=== PATIENT | female | born 1955 | race Caucasian/White ===

== ENCOUNTER 2017-02-14 14:17 | Outpatient (CLI) | payer OTHER | END 2017-02-14 14:18 | disposition home or self-care (01) | DX: Z12.31 Encounter for screening mammogram for malignant neoplasm of breast (principal); Z85.3 Personal history of malignant neoplasm of breast ==

== ENCOUNTER 2017-02-14 14:19 | Outpatient (CLI) | payer OTHER | END 2017-02-14 14:20 | disposition home or self-care (01) | DX: N83.202 Unspecified ovarian cyst, left side (principal); R35.0 Frequency of micturition ==

== ENCOUNTER 2017-04-13 15:50 | Outpatient (CLI) | payer OTHER | END 2017-04-13 15:51 | disposition home or self-care (01) | LOC: LAB 15:50 | PROVIDERS: ATTEND Obstetrics & Gynecology | DX: D27.0 Benign neoplasm of right ovary (principal) | CPT/HCPCS: 36415; 86304 ==

== ENCOUNTER 2017-05-22 15:19 | Outpatient (CLI) | payer OTHER ==
--- NOTE | 2017-05-23 09:36 | Ultrasound Report ---
PELVIC ULTRASOUND: 05/22/2017 CLINICAL INDICATION: Followup left ovarian cysts. COMPARISON: 02/14/2017 TECHNIQUE: Transabdominal pelvic ultrasound performed for global evaluation. Transvaginal pelvic ul trasound performed for detailed evaluation. Real-time scanning performed and static images obtained. FINDINGS: The uterus is anteverted, measuring 5.6 x 2.9 x 2.1 cm. The endometrial echo complex estela ures 4 mm. Trace fluid is present in the endometrium. No focal myometrial lesion is appreciated. T he right ovary measures 2.4 x 1.9 x 1.8 cm, and appears unremarkable. The left ovary measures 4.0 x 2.5 x 2.5 cm, and again contains three simple cysts, now measuring 1.7, 1.7, and 1.[address] (previously 1.5, 1.2, and 1.1 cm). No free fluid is present. IMPRESSION: INTERVAL INCREASE IN SIZE OF THE THREE LEFT OVARIAN CYSTS. NORMAL RIGHT OVARY. JOB #: [id number] EXT JOB #:[id number]
== END 2017-05-22 15:20 | disposition home or self-care (01) ==
LOC: DI 15:19
PROVIDERS: ATTEND Obstetrics & Gynecology
DX: N83.292 Other ovarian cyst, left side (principal)
CPT/HCPCS: 76830; 76856

== ENCOUNTER 2017-05-22 16:55 | Observation (INO) | payer OTHER ==
[2017-05-22] MEDS ORDERED: SODIUM CHLORIDE 0.9% 1,000 ML IV ONE (17:04)
[2017-05-22] MEDS ORDERED: FAMOTIDINE 20 MG/50 ML 50 ML IV ONE (17:11)
[2017-05-22] MEDS ORDERED: DEXAMETHASONE 10 MG/ML VIAL PO STA (17:11)
[2017-05-22] MEDS ORDERED: diphenhydrAMINE INJ 50 MG/ML VIAL IVP STA (17:11)
[2017-05-22] MEDS ORDERED: EPINEPHrine 1 MG/1 ML 30 ML MDV ONE (17:15)
[2017-05-22] MEDS ORDERED: EPINEPHrine 1 MG/ML AMP IM STA (17:17)
[2017-05-22] MEDS ORDERED: EPINEPHrine 1 MG/ML AMP ONE (17:20)
[2017-05-22] MEDS ORDERED: diphenhydrAMINE INJ 50 MG/ML VIAL ONE (17:23)
[2017-05-22] MEDS ORDERED: DEXAMETHASONE 10 MG/ML VIAL ONE (17:23)
[2017-05-22] MEDS ORDERED: FAMOTIDINE 20 MG/50 ML IV ONE (17:23)
[2017-05-22 17:37] LABS: BASOPHILS % (AUTO) 0.6 %; EOSINOPHILS # (AUTO) 0.1 10^3/uL (0.0-0.7); EOSINOPHILS % (AUTO) 1.3 %; HCT - HEMATOCRIT 38.5 % (37.0-47.0); HGB - HEMOGLOBIN 12.9 g/dL (12.0-16.0); LYMPHOCYTES # (AUTO) 2.4 10^3/uL (1.5-3.5); LYMPHOCYTES % (AUTO) 47.2 %; MEAN CORPUSCULAR HEMOGLOBIN 29.5 pg (27.0-31.0); MEAN CORPUSCULAR HGB CONC 33.4 g/dL (32.0-36.0); MEAN CORPUSCULAR VOLUME 88.2 fL (81.0-99.0); MONOCYTES # (AUTO) 0.3 10^3/uL (0.0-1.0); MONOCYTES % (AUTO) 6.2 %; NEUTROPHILS # (AUTO) 2.3 10^3/uL (1.5-6.6); NEUTROPHILS % (AUTO) 44.7 %; NUCLEATED RED BLOOD CELLS AUTO 0.1 /100WBC; RED BLOOD COUNT 4.37 10^6/uL (4.20-5.40); UNCORRECTED WHITE BLOOD COUNT 5.1 x10^3/uL; WHITE BLOOD COUNT 5.1 x10^3/uL (4.8-10.8)
[2017-05-22 17:49] LABS: ALBUMIN/GLOBULIN RATIO 1.2 (1.0-2.2); BILIRUBIN,TOTAL 0.5 mg/dL (0.2-1.0); CALCIUM 8.5 mg/dL (8.5-10.3); CREATININE 0.8 mg/dL (0.4-1.0); POTASSIUM 3.5 mmol/L (3.5-5.0)
--- NOTE | 2017-05-22 17:54 | ED Physician Documentation ---
History of Present Illness - Stated complaint Stated Complaint: ALLERGIC REACTION - Chief complaint Chief Complaint: Allergic Rx - Additonal information Additional information: hx from pt hx of allergic rxn to sono gel or probe cover after sono today developed hypotension itching and upper chest / throat tightness "like a nutcracker" was well prior to sono (which as done to eval her ovaries) Review of Systems Constitutional: denies: Fever, Chills Throat: reports: Sore throat Cardiac: reports: Chest pain / pressure Respiratory: reports: Dyspnea GI: denies: Abdominal Pain, Nausea, Vomiting Skin: denies: Rash (but itchy) Neurologic: reports: Generalized weakness (low BP) PD PAST MEDICAL HISTORY - Past Medical History Cardiovascular: Atrial fibrillation, Other - Present Medications Home Medications: Ambulatory Orders Medication Instructions Recorded Confirmed Calcium Carbonate [Calcium] 600 mg PO DAILY 04/22/14 02/25/16 Cholecalciferol (Vitamin D3) 2,000 unit PO DAILY 04/22/14 02/25/16 [Vitamin D] Ibuprofen 0 mg PO Q6H PRN 04/22/14 02/26/16 Magnesium Oxide [Magnesium] 500 mg PO DAILY 04/22/14 02/25/16 Aspirin 325 mg PO DAILY 02/25/16 02/25/16 diltiaZEM CD [Cardizem Cd] 120 mg PO DAILY 02/25/16 02/26/16 - Allergies Allergies/Adverse Reactions: Allergies Allergy/AdvReac Type Severity Reaction Status Date / Time No Known Drug Allergies Allergy Unverified 04/22/14 13:25 - Social History Does the pt smoke?: No Smoking Status: Never smoker PD ED PE NORMAL - Vitals Vital signs reviewed: Yes - General General: Alert and oriented X 3, Other (awake alert talkign despite very low BP) - HEENT HEENT: Other (no oral edema visible - pt states throat feels tight) - Cardiac Cardiac: RRR - Respiratory Respiratory: No respiratory distress, Clear bilaterally - Abdomen Abdomen: Soft, Non tender - Derm Derm: Other (pale but no hives) Results - Vitals Vitals: Vital Signs - 24 hr 05/22/17 17:02 Temperature 37 C Heart Rate 138 H Respiratory 20 Rate Blood Pressure 78/55 L O2 Saturation 100 Oxygen O2 Source Room air - EKG (time done) 1706 Rate: Rate (enter#) Rhythm: NSR Ischemia: Other (mild ST elev of uncertain sig V2 V3, concave up could be repol but in setting of acute chest pain) Compare to prior EKG: Old EKG unavailable 1825 Rate: Rate (enter#) (62) Rhythm: NSR Ischemia: Other (again slight ST elev V2 V3 similar to EKG #1) - Labs Labs: Laboratory Tests 05/22/17 05/22/17 05/22/17 17:31 17:31 17:31 WBC 5.1 RBC 4.37 Hgb 12.9 Hct 38.5 MCV 88.2 MCH 29.5 MCHC 33.4 RDW 13.0 Plt Count 243 MPV 7.0 L Neut # 2.3 Lymph # 2.4 [place] # 0.3 Eos # 0.1 Baso # 0.0 Absolute Nucleated RBC 0.01 Band Neuts % (Manual) Not Reportable Nucleated RBCs 0.1 Differential Comment MANUAL=AUTO DIFF Platelet Estimate NORMAL (130-450,000) Platelet Morphology NORMAL APPEARANCE RBC Morph Micro Appear NORMAL APPEARANCE Sodium 135 Potassium 3.5 Chloride 105 Carbon Dioxide 21 Anion Gap 9.0 BUN 23 H Creatinine 0.8 Estimated GFR (MDRD) 73 L Glucose 134 H Calcium 8.5 Total Bilirubin 0.5 AST 26 ALT 22 Alkaline Phosphatase 65 Troponin I < 0.04 Total Protein 6.0 L Albumin 3.3 Globulin 2.7 Albumin/Globulin Ratio 1.2 Lipase 30 PD MEDICAL DECISION MAKING - ED course ED course: sx c/w anaphylactic rxn - itching throat tightness hypotension gave epi decadron benadryl and pepcid due to CP got EKG which was abn - no hx CAD - -will req obs for monitoring allergy sx and also serial CE as she exhibited CP and EKG changes under stress d/w hospitalist Dr Rincon and she agrees to admit and advises obs Departure - Departure Disposition: ED Place in Observation Clinical Impression: Anaphylaxis Qualifiers: Encounter type: initial encounter Qualified Code(s): T78.2XXA - Anaphylactic shock, unspecified, initial encounter Chest pain Qualifiers: Chest pain type: unspecified Qualified Code(s): R07.9 - Chest pain, unspecified Condition: Fair
[2017-05-22 18:13] LABS: NP AUTO DIFFERENTIAL? NO; NP MAN DIFFERENTIAL? YES; PLATELET ESTIMATE, MANUAL NORMAL (130-450,000) (NORMAL); PLATELET MORPHOLOGY NORMAL APPEARANCE (NORMAL)
[2017-05-22] MEDS ORDERED: ACETAMINOPHEN 325 MG TABLET PO PRN (19:29)
[2017-05-22] MEDS ORDERED: SODIUM CHLORIDE FLUSH 0.9% 10 ML SYRINGE IVP PRN (19:29)
[2017-05-22] MEDS ORDERED: ONDANSETRON ODT 4 MG TABLET TL PRN (19:29)
--- NOTE | 2017-05-22 19:52 | HISTORY & PHYSICAL EXAMINATION ---
Chief Complaint - Chief Complaint Chief Complaint: anaphylaxis after exposure to ultrasound gel History of Present Illness - Admitted From Admitted From:: emergency room - History Obtained From Records Reviewed: er History obtained from: pt Exam Limitations: none - History of Present Illness HPI Comment/Other: this patient had an uultrasound and experienced ... anaphylaxis after exposure to the ultrasound gel or vaginal probe cover, associated with hypotension, chest pain, throat closing. She was evaluated in The emergency room. she reports she had a vaginal ultrasound about 2 months ago, after which she had itching and swelling of her hands and feet and face. She took a Zyrtec, and symptoms resolved. today, she had another ultraso ultrasound. shortly after the exam, she noted onset of swelling of her face, hands and feet, as well as itching. She got up to get a Zyrtec, and apparently fainted. When she opened her ey eyes, the tach was standing over her. She said she felt very strange and diaphoretic, and felt like her throat was closing, and she was having significant chest pressure. This made her feel quite short of breath. She was taken to the e emergency room , and was given epinephrine, dexamethasone, Benadryl, Pepcid. She was initially hypotensive, but symptoms resolved fairly quickly after treatment. She is now admitted for further observation, to be sure symptoms do not return. She currently feels ba and back to normal. Otherwise, she says she was feeling fine prior to the exam. She has not had recent fever or chills, headaches or dizziness,new eye or ear symptoms, sore throat or cough, nausea or vomiting, diarrhea or constipatio, or dysuria. past medical history: Left breast cancer, 2001. osteoarthritis Osteopenia atrial fibrillation in the past GERD Left inguinal hernia re 2002 Medications: she believes she takes metoprolol, dose uncertain. Aspirin 325 mg daily Allergies: No known drug allergies, prior to today. Family history: Aunt had ovarian cancer. Father had some kind of allergies. Her brother has juvenile diabetes. Her sister has asthma. Social history: rare alcohol use, no tobacco use.no drug use. she lives with her History - Past Medical History Cardiovascular: reports: Atrial fibrillation, Other Meds/Allgy - Home Medications Home Medications: Ambulatory Orders Medication Instructions Recorded Confirmed Calcium Carbonate [Calcium] 600 mg PO DAILY 04/22/14 02/25/16 Cholecalciferol (Vitamin D3) 2,000 unit PO DAILY 04/22/14 02/25/16 [Vitamin D] Ibuprofen 0 mg PO Q6H PRN 04/22/14 02/26/16 Magnesium Oxide [Magnesium] 500 mg PO DAILY 04/22/14 02/25/16 Aspirin 325 mg PO DAILY 02/25/16 02/25/16 diltiaZEM CD [Cardizem Cd] 120 mg PO DAILY 02/25/16 02/26/16 - Allergies Allergies/Adverse Reactions: Allergies Allergy/AdvReac Type Severity Reaction Status Date / Time No Known Drug Allergies Allergy Unverified 04/22/14 13:25 Exam - Vital Signs Reviewed Vital Signs: Yes Vital Signs: Vital Signs x48h Temp Pulse Resp BP Pulse Ox 05/22/17 19:43 16 05/22/17 19:42 76 19 122/70 98 05/22/17 19:17 66 121/68 98 05/22/17 18:30 64 121/68 97 05/22/17 17:50 62 18 120/97 H 98 05/22/17 17:02 37 C 138 H 20 78/55 L 100 on exam, she is in no acute dis Distress. Head: Normocephalic atraumatic. Eyes: Pupils round and react. Anicteric. Pharynx: Appears clear. Teeth are in good rep Repair. Neck: Is supple, without lymphadenopathy, JVD, thyromegaly, bruits. Cardiac exam: Shows regular rate and rhythm, with normal S1 and S2. No murmurs, rubs, gallops are noted. lungs: Clear to auscultation, without rales, rhonchi, wheezes. Abdomen: Is soft and nontender without obvious masses. Extremities: Show no cyanosis, clubbing, edema. Skin exam: Shows no obvious swelling or rashes. Neurologic exam: Is grossly nonfocal. Conclusion/Plan - Lab Results Fish Bones: 05/22/17 17:31 05/22/17 17:31 Other Lab Results: differential on her CBC appears normal. LFTs within normal limits, although total protein is low at 6 EKG:Shows normal sinus rhythm at 68 and, J-point elevation note in leads V2 through V3.enlarged P waves suggest right atrial enlargement. Issues/Core Measures - Anticipated LOS Anticipated Stay Length: Less than 2 midnights - Issues Hospital Issues and Management Plan: #1.acute anaphylactic react reaction, apparently to ultrasound gel, or vaginal probe cover. -much improved after treatment with Benadryl, dexamethasone, epinephrine, famotidine. -monitor for at least 8 hours on telemetry, for signs of delayed reaction. The patient expressed a desire to return home, but after discussion, she and her agreed she should stay. -We discussed that she should probabl have followup with an circulation man, to pinpoint the cause of her allergies.. She should also contact the ultrasound departme to get the brand name of the ultrasound gel, and probe covers. #2. CODE STATUS:full code. #3. DVT prophylaxis: The patient should be , and low risk. Start subcutaneous hep if she will be her more Then 24 hours. #4. Cardiac. She apparently has a history of paroxysmal atrial fibrillation. She is in sinus today. I then tried to verify home dose of metoprolol. Continue aspirin. #5. History breast cancer. Resolved. this visit took approximately 50 m to review patient's case with the ER [facility], review records and test results the patient weighed with the patien by Dr. Quinones with her, interview and examine he, and write orders.
[2017-05-22] MEDS ORDERED: POTASSIUM CHLORIDE INJ 20 MEQ in DEXTROSE 5%-0.45% NACL 1,000 ML IV SCH (20:00)
[2017-05-22] MEDS ORDERED: D5.45NS W/20 MEQ KCL 1,000 ML IV SCH (23:00)
[2017-05-22] MEDS: SODIUM CHLORIDE FLUSH 0.9% 10 ML SYRINGE IVP SCH (23:51)
[2017-05-23] MEDS ORDERED: IBUPROFEN 400 MG TABLET PO SCH (01:00)
[2017-05-23] MEDS: SODIUM CHLORIDE FLUSH 0.9% 10 ML SYRINGE IVP SCH (05:27)
[2017-05-23 08:19] VITALS: BP 130/69
--- NOTE | 2017-05-23 08:31 | Discharge Plan ---
Discharge Plan Disposition: 01 Home, Self Care Condition: Good Diet: Cardiac Activity Restrictions: No Restrictions Shower Restrictions: No Driving Restrictions: No Weight Bearing: Full Weight Instruction Topics: ED Anaphylaxis General Additional Instructions or Follow Up instructions: Please follow up with your primary care provider regarding your symptoms this week. You will need to continue on home medications as prescribed. You will need to see an supervisor boat outfitting for reason why you had a reaction to the ultrasound transvaginal wand and sheath used for the procedure. You may have a latex allergy. You can continue on your diet as usual. Be sure to drink several glasses of water throughout the day. Get plenty of sleep at night. Exercise as usual, walking is best. Return to the ER is symptoms worsen or you have chest pain or shortness of breath. No Smoking: If you smoke, Please STOP! Call for help.
--- NOTE | 2017-05-23 08:36 | DISCHARGE SUMMARY ---
"Discharge Summary Admit Date: 05/22/17 Discharge Date: 05/23/17 Discharging Provider: Talya Bucio APRN Code Status: Attempt Resuscitation Condition at Discharge: Good Discharge Disposition: 01 Home, Self Care - DIAGNOSES Admission Diagnoses: 1. Acute anaphylaxis with possible latex allergy s/p ultrasound transvaginal 2. Chronic Atrial Fibrillation, paroxysmal 3. History of breast cancer Discharge Diagnoses with Status of Each Condition: 1. Acute anaphylaxis with possible latex allergy s/p ultrasound transvaginal 2. Chronic Atrial Fibrillation, paroxysmal 3. History of breast cancer - HPI History of Present Illness: this patient had an uultrasound and experienced ... anaphylaxis after exposure to the ultrasound gel or vaginal probe cover, associated with hypotension, chest pain, throat closing. She was evaluated in The emergency room. she reports she had a vaginal ultrasound about 2 months ago, after which she had itching and swelling of her hands and feet and face. She took a Zyrtec, and symptoms resolved. today, she had another ultraso ultrasound. shortly after the exam, she noted onset of swelling of her face, hands and feet, as well as itching. She got up to get a Zyrtec, and apparently fainted. When she opened her ey eyes, the tach was standing over her. She said she felt very strange and diaphoretic, and felt like her throat was closing, and she was having significant chest pressure. This made her feel quite short of breath. She was taken to the e emergency room , and was given epinephrine, dexamethasone, Benadryl, Pepcid. She was initially hypotensive, but symptoms resolved fairly quickly after treatment. She is now admitted for further observation, to be sure symptoms do not return. She currently feels ba and back to normal. Otherwise, she says she was feeling fine prior to the exam. She has not had recent fever or chills, headaches or dizziness,new eye or ear symptoms, sore throat or cough, nausea or vomiting, diarrhea or constipatio, or dysuria. - CONSULTS | PROCEDURES Consultations: none - HOSPITAL COURSE Hospital Course: Patient was admitted with anaphylaxis after exposure to the ultrasound gel or vaginal probe cover during a transvaginal US, associated with hypotension, chest pain, throat closing. She was evaluated in The emergency room. She reports she had a vaginal ultrasound about 2 months ago, after which she had itching and swelling of her hands and feet and face. She took a Zyrtec, and symptoms resolved. today, she had another Patient noted onset of swelling of her face, hands and feet, as well as itching. Patient was admitted into observation for closer monitoring. While in the ER she was given epinephrine, dexamethasone, Benadryl, Pepcid. She was initially hypotensive, but symptoms resolved fairly quickly after treatment. Treatment included IVF NS and continuation of her medication for AFib and blood pressure. She had tylenol ordered for pain or fever. She remained on a cardiac diet. She had no additional symptoms of allergic reaction after the initial event. Her vitalsigns remained stable. She continued on benadryl, pepcid and dexamethasone PRN for additional symptoms. On day of discharge, VS WNL and patient as wanting to be discharged home. She will go home with private vehicle with family - ALLERGIES Allergies/Adverse Reactions: Allergies Allergy/AdvReac Type Severity Reaction Status Date / Time No Known Drug Allergies Allergy Unverified 04/22/14 13:25 - MEDICATIONS Home Medications: Ambulatory Orders Medication Instructions Recorded Confirmed Calcium Carbonate [Calcium] 600 mg PO DAILY 04/22/14 02/25/16 Cholecalciferol (Vitamin D3) 2,000 unit PO DAILY 04/22/14 02/25/16 [Vitamin D3] Ibuprofen 0 mg PO Q6H PRN 04/22/14 02/26/16 Magnesium Oxide [Magnesium] 500 mg PO DAILY 04/22/14 02/25/16 Aspirin 325 mg PO DAILY 02/25/16 02/25/16 diltiaZEM CD [Cardizem Cd] 120 mg PO DAILY 02/25/16 02/26/16 - PHYSICAL EXAM AT DISCHARGE General Appearance: positive: No acute distress, Alert Eyes Bilateral: positive: Normal inspection, PERRL ENT: positive: ENT inspection nml, Pharynx nml Neck: positive: Nml inspection, Thyroid nml, No JVD, Trachea midline Respiratory: positive: Chest non-tender, No respiratory distress, Breath sounds nml Cardiovascular: positive: Regular rate & rhythm, No murmur, No gallop Peripheral Pulses: positive: 2+ Abdomen: positive: Non-tender, No organomegaly, Nml bowel sounds, No distention Back: positive: Nml inspection Skin: positive: Color nml, No rash, Warm, Dry Extremities: positive: Non-tender, Full ROM Neurologic/Psychiatric: positive: Oriented x3, CN's nml (2-12), Mood/affect nml - LABS Result Diagrams: 05/22/17 17:31 05/22/17 17:31 Other Lab Results: Abnormal Lab Results 05/22/17 05/22/17 17:31 17:31 MPV 7.0 fL L fL (7.9-10.8) BUN 23 mg/dL H mg/dL (6-20) Estimated GFR (MDRD) 73 L (>89) Glucose 134 mg/dL H mg/dL (70-100) Total Protein 6.0 g/dL L g/dL (6.7-8.2) - FOLLOW UP Follow Up: Followup with your primary care provider within 1 week of discharge. you will need to see an absorption and adsorption engineer within the first week after discharge. Time spent on discharge planning and education was 30 minutes."
[2017-05-23 08:54] LABS: BASOPHILS % (AUTO) 0.5 %; EOSINOPHILS % (AUTO) 0.1 %; HGB - HEMOGLOBIN 14.1 g/dL (12.0-16.0); LYMPHOCYTES # (AUTO) 0.7 10^3/uL (1.5-3.5); MEAN CORPUSCULAR HEMOGLOBIN 29.5 pg (27.0-31.0); MEAN CORPUSCULAR HGB CONC 33.5 g/dL (32.0-36.0); MONOCYTES # (AUTO) 0.2 10^3/uL (0.0-1.0); MONOCYTES % (AUTO) 3.4 %; NEUTROPHILS # (AUTO) 4.8 10^3/uL (1.5-6.6); RED BLOOD COUNT 4.78 10^6/uL (4.20-5.40); RED CELL DISTRIBUTION WIDTH 13.3 % (12.0-15.0); UNCORRECTED WHITE BLOOD COUNT 5.7 x10^3/uL; WHITE BLOOD COUNT 5.7 x10^3/uL (4.8-10.8)
[2017-05-23] MEDS ORDERED: POLYETHYLENE GLYCOL 3350 17 GM PACKET PO SCH (09:00)
[2017-05-23 09:05] LABS: ALBUMIN/GLOBULIN RATIO 1.1 (1.0-2.2); BILIRUBIN,TOTAL 0.5 mg/dL (0.2-1.0); CALCIUM 9.3 mg/dL (8.5-10.3); CREATININE 0.7 mg/dL (0.4-1.0); POTASSIUM 4.3 mmol/L (3.5-5.0); TOTAL PROTEIN 7.2 g/dL (6.7-8.2)
== END 2017-05-23 10:35 | disposition home or self-care (01) ==
LOC: ED 16:55 → OBS 19:29
PROVIDERS: ADMIT Internal Medicine; ATTEND Nurse Practitioner
DX: T78.2XXA Anaphylactic shock, unspecified, initial encounter (principal); I48.0 Paroxysmal atrial fibrillation; K21.9 Gastro-esophageal reflux disease without esophagitis; Z85.3 Personal history of malignant neoplasm of breast; Z79.82 Long term (current) use of aspirin; N83.292 Other ovarian cyst, left side
CPT/HCPCS: 36415; 76830; 76856; 80053; 83690; 84484; 85025; 93005; 96365; 96366; 96372; 96375; 99217; 99218; 99283; 99284; A9270

== ENCOUNTER 2017-11-30 12:51 | Outpatient (CLI) | payer OTHER ==
[2017-11-30 13:14] LABS: BASOPHILS # (AUTO) 0.1 10^3/uL (0.0-0.1); BASOPHILS % (AUTO) 1.1 %; EOSINOPHILS # (AUTO) 0.2 10^3/uL (0.0-0.7); EOSINOPHILS % (AUTO) 3.4 %; HGB - HEMOGLOBIN 13.4 g/dL (12.0-16.0); LYMPHOCYTES # (AUTO) 1.7 10^3/uL (1.5-3.5); LYMPHOCYTES % (AUTO) 32.6 %; MEAN CORPUSCULAR HEMOGLOBIN 29.7 pg (27.0-31.0); MEAN CORPUSCULAR VOLUME 90.2 fL (81.0-99.0); MEAN PLATELET VOLUME 7.2 fL (7.9-10.8); MONOCYTES # (AUTO) 0.5 10^3/uL (0.0-1.0); MONOCYTES % (AUTO) 10.2 %; NEUTROPHILS # (AUTO) 2.7 10^3/uL (1.5-6.6); NEUTROPHILS % (AUTO) 52.7 %; PLT - PLATELET COUNT 263 10^3/uL (130-450); RED BLOOD COUNT 4.52 10^6/uL (4.20-5.40); WHITE BLOOD COUNT 5.2 x10^3/uL (4.8-10.8)
[2017-11-30 13:28] LABS: ALBUMIN/GLOBULIN RATIO 1.1 (1.0-2.2); BILIRUBIN,TOTAL 0.8 mg/dL (0.2-1.0); CALCIUM 8.9 mg/dL (8.5-10.3); CREATININE 0.8 mg/dL (0.4-1.0); TOTAL PROTEIN 7.6 g/dL (6.7-8.2)
[2017-11-30 13:43] LABS: PLATELET ESTIMATE, MANUAL NORMAL (130-450,000) (NORMAL); PLATELET MORPHOLOGY NORMAL APPEARANCE (NORMAL); RBC MORPHOLOGY (MULTIPLE) NORMAL APPEARANCE (NORMAL)
== END 2017-11-30 12:52 | disposition home or self-care (01) ==
LOC: LAB 12:51
PROVIDERS: ATTEND Obstetrics & Gynecology
DX: N83.202 Unspecified ovarian cyst, left side (principal)
CPT/HCPCS: 36415; 80053; 85025

== ENCOUNTER 2017-12-05 16:36 | Outpatient (CLI) | payer OTHER ==
--- NOTE | 2017-12-06 07:15 | XRAY Report ---
EXAM: CHEST RADIOGRAPHY EXAM DATE: 12/05/2017 04:48 PM. CLINICAL HISTORY: PRE OP. HX INTERMITTENT AFIB, OVARIAN CYST LEFT SIDE. COMPARISON: None. TECHNIQUE: 2 views. FINDINGS: Lungs/Pleura: Mild bilateral diffuse reticular opacities appear chronic. No focal consolidation evide nt. No pleural effusion. No pneumothorax. Mild hyperinflation. Mediastinum: Heart and mediastinal contours are unremarkable. Other: Surgical clips in left axilla and probable left mastectomy. Minimal scoliosis. IMPRESSION: No radiographically apparent acute abnormality in the chest. Possible COPD. [facility] Referring Provider Line: [phone] SITE ID: [id number]
--- NOTE | 2017-12-06 07:15 | XRAY Preliminary Report ---
Exam: XR CHEST 2 VIEW X-RAY IMPRESSION: No radiographically apparent acute abnormality in the chest. Possible COPD. [facility] SITE ID: [id number]
== END 2017-12-05 16:37 | disposition home or self-care (01) ==
LOC: DI 16:36
PROVIDERS: ATTEND Obstetrics & Gynecology
DX: Z01.818 Encounter for other preprocedural examination (principal); Z01.810 Encounter for preprocedural cardiovascular examination; N83.202 Unspecified ovarian cyst, left side; I48.91 Unspecified atrial fibrillation
CPT/HCPCS: 71046; 93005

== ENCOUNTER 2017-12-06 06:09 | Day surgery (SDC) | payer OTHER ==
--- NOTE | 2017-12-05 17:03 | PREOP HISTORY & PHYSICAL ---
DATE OF SERVICE: 12/05/2017 Physician: Hector Amaya MD ANTICIPATED FOR 12/06/2017 IDENTIFICATION: Patient is a 62-year-old G1, P1 female who reached menopause roughly at 46 years of age secondary to chemotherapy. CHIEF COMPLAINT: Growing ovarian cyst. HISTORY OF PRESENT ILLNESS: Patient has been noted to have a multiloculated ovarian cyst roughly 1 year ago. Over time this has continued to increase in size. She denies any symptoms. She has a normal CA-125 at 7. For this reason, we are planning to do a laparoscopic bilateral salpingo-oophorectomy. PAST MEDICAL HISTORY: Positive for intermittent atrial fibrillation past 4 years. Takes beta jarrod PRN. last episode was 3 weeks ago. pt has had a normal Echo. She also has a history of left breast cancer. PAST SURGICAL HISTORY: Left inguinal hernia. She has also had a left axillary lymph node dissection as well as lumpectomy with radiation with breast cancer. ALLERGIES: LATEX, WHICH CAUSES ANAPHYLACTIC REACTION. MEDICATIONS: Patient has taken ASA 325 mg p.o. daily, last dose was yesterday. HABITS: Patient denies use of tobacco, street or addictive drugs, or tetrahydrocannabinol. She has alcohol only occasionally. 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 PHYSICAL EXAMINATION GENERAL: Patient is a well-developed, well-nourished white female. She is in no acute distress at this time. VITAL SIGNS: Blood pressure is 132/70, weight is 143.4 pounds. HEENT: Pupils are equal, round. Extraocular muscle intact. She shows no sign of scleral icterus. Mouth is clear. Thyroid is nonpalpably enlarged. HEART: Regular rate and rhythm without murmurs. LUNGS: Lung godfrey are clear throughout without rales or wheezes. ABDOMEN: Exam is soft, nontender. There is no evidence of any organomegaly. There is evidence of a well-healed left inguinal scar from previous herniorrhaphy. PELVIC: Examination is deferred at this particular time, as she has had ultrasound. IMPRESSION: A 62-year-old G1, P1, female who reached menopause at 46 years of age, with persistent ovarian cyst. Decided not to do hyst as this would only add to the complexity of the procedure and risk. PLAN: We will perform laparoscopic bilateral salpingo-oophorectomy. Risks and benefits have been explained to the patient including those, but not limited to bleeding, infection, injury to pelvic organs. She is aware of the potential for DVT with PE, as well as postop adhesions which could cause pain. Patient accepts at this time. She has been given a prescription for both oxycodone 5 mg #15, as well as Zofran 4 mg #10. TD: 12/05/2017 16:23 [facility]
[2017-12-06] MEDS ORDERED: LACTATED RINGERS 1,000 ML IV ONE ×2 (07:23→09:03)
[2017-12-06] MEDS ORDERED: ceFAZolin 2 GM/50 ML 2 GM/50 ML BAG IV ONE (07:24)
[2017-12-06] MEDS ORDERED: DEXAMETHASONE 4 MG/ML VIAL IVP ONE (08:00)
[2017-12-06] MEDS ORDERED: ACETAMINOPHEN 1,000 MG/100 ML 100 ML IV ONE (08:00)
[2017-12-06] MEDS ORDERED: PROPOFOL 200 MG/20 ML VIAL IVP ONE ×2 (08:00)
[2017-12-06] MEDS ORDERED: KETOROLAC 30 MG/ML VIAL IVP ONE (08:00)
[2017-12-06] MEDS ORDERED: ePHEDrine 50 MG/ML AMP IVP ONE (08:00)
[2017-12-06] MEDS ORDERED: SUCCINYLCHOLINE 200 MG/10 ML VIAL IVP ONE (08:00)
[2017-12-06] MEDS ORDERED: fentaNYL 100 MCG/2 ML VIAL IVP ONE (08:00)
[2017-12-06] MEDS ORDERED: MIDAZOLAM 2 MG/2 ML VIAL IVP ONE (08:00)
[2017-12-06] MEDS ORDERED: LIDOCAINE-MPF 2% 5 ML VIAL IM ONE (08:00)
[2017-12-06] MEDS ORDERED: ONDANSETRON 4 MG/2 ML VIAL IVP ONE (08:00)
[2017-12-06] MEDS ORDERED: SODIUM CHLORIDE 0.9% 10 ML VIAL IV ONE (08:00)
[2017-12-06] MEDS ORDERED: BUPIVACAINE 0.25%-EPI 1:200000 PF 30 ML VIAL SUBQ ONE (09:03)
[2017-12-06] MEDS ORDERED: fentaNYL 100 MCG/2 ML VIAL ONE (10:17)
[2017-12-06] MEDS ORDERED: oxyCODONE 5 MG TABLET ONE (11:58)
[2017-12-06 12:44] VITALS: BP 92/51
--- NOTE | 2017-12-07 05:13 | OPERATIVE REPORT ---
DATE OF SERVICE: 12/06/2017 Physician: Hector Amaya MD PREOPERATIVE DIAGNOSIS: Persistent growing multiloculated left ovarian cyst. POSTOPERATIVE DIAGNOSIS: Persistent growing left ovarian multiloculated ovarian cyst with right lower quadrant adhesions. PROCEDURE: Laparoscopic bilateral salpingo-oophorectomy with lysis of right lower quadrant adhesions. SURGEON: Dr. Hector Amaya ANESTHESIA: General via endotracheal tube, with Huy. ESTIMATED BLOOD LOSS: 15 mL FINDINGS: Upon entering the abdominal cavity, there was no evidence of injury at the site of insertion; however, there is evidence of adhesion of the cecal area to the right lower quadrant. The gallbladder appeared to be enlarged. The left ovary had multiple cysts as previously noted on ultrasound. The right ovary appeared to be free of disease. PROCEDURE: Following adequate endotracheal anesthesia, the patient was placed in the dorsal lithotomy position in Malcolm stirrups. SCDs were previously placed. She was then prepped and draped in the usual fashion. Following a timeout, which concerns about possible atrial arrhythmias were discussed, the procedure was commenced. A speculum was placed in the vagina. The cervix visualized, resided high in the pelvic cavity. The cervix was also anterior. It was with some difficulty that the cervix was eventually grasped on the anterior lip. The uterus was then dilated up to a size #16 dilator. A Jn manipulator was then placed in the cervical canal and the balloon inflated. A Chen catheter was then placed under sterile conditions. At this point, the spar machine operator's gloves were changed and following local anesthesia with 0.25% Marcaine with epinephrine, the stab wound was made in the subumbilical area with a #15 blade. At this point, a 5 mm trocar and sheath were introduced under direct visualization. There is no evidence of any injury to the bowel. However, with insufflation, there was evidence of adhesions to the right lower quadrant. These were thin and filmy. At this point, 2 additional ports were placed, both in the left and right lower quadrants following local transillumination of the anterior abdominal wall, as well as local anesthesia with 0.25% Marcaine with epinephrine. Skin incisions were made with a #15 blade. At this point, 5 mm trocars were placed, both left and right side, under direct visualization. The LigaSure was then introduced and the adhesions were both bluntly and sharply taken down. Care was assured, good hemostasis as well as staying as clear from the bowel as possible. At the end of the dissection, there was no bleeding noted. This was irrigated and then aspirated. At this point, the right fallopian tube was grasped near the fimbria. The infundibulopelvic ligament was doubly cauterized and then transected with the LigaSure. Then, traversing across the mesovarium the ovaries blood supply was cauterized and then transected with the LigaSure. This was carried all the way to the cornu. This was then placed in the abdominal cavity. Because of the size, it was decided to enlarge the right lower quadrant port. This was done with skin incision as well as digitally. A 10 mm trocar and sheath were then introduced and following this, an EndoCatch was placed in the abdominal cavity. The adnexa was placed in the EndoCatch and then attempted to be brought through the port. Because of the size of the ovary and its cyst, it was not possible to do this, so then utilizing a peon the incision was spread and eventually was brought through the incision. This was sent for pathologic evaluation. The attachments to the ovaries, as well as the infundibulopelvic ligament were inspected. No bleeding was noted. The right tube and ovary were then treated in an identical fashion. The infundibulopelvic ligament was doubly cauterized and then transected and then the coming across the mesovarium the ovary and its attachments, as well as the fallopian tube were cauterized, transected, all the way up to the cornu and this was removed. The suture line was noted to be dry without evidence of any bleeding. This was grasped with a grasper then brought through the incision without difficulty. Both laparoscopic incision sites were all noted to be dry without evidence of any further bleeding. The pelvis as well as the right lower quadrant were irrigated with sterile saline. No bleeding was noted. So, at this time, it was decided to complete the procedure. The right lower quadrant and port was removed. Following this, a Aashish-Nixon was placed and then a simple suture of #0 Vicryl was placed under direct visualization. The wall site was inspected and there was noted to be complete closure. This also appeared to be pneumo static in that no further carbon dioxide came out through the abdominal cavity on this quadrant. The left lower quadrant port was then removed under direct visualization. There was no evidence of any bleeding. The pelvis was inspected and irrigated and once again no bleeding was noted from any of the transection sites. The laparoscope was removed and the CO2 was allowed to escape through the trocar. All 4 sites were closed utilizing 4-0 Monocryl subcuticular and then Dermabond was placed on these to secure them. There was some oozing in the left lower quadrant one, however, this appeared to have completely ceased at the end of the case. Attention was turned down to the vagina. The HUMI bulb was then deflated and the catheter was removed. The patient tolerated the procedure well and was taken to recovery in stable condition. Sponge and needle counts were correct. TD: 12/06/2017 18:33 MTDD
== END 2017-12-06 06:10 | disposition home or self-care (01) ==
LOC: SDS 06:09
PROVIDERS: ATTEND Obstetrics & Gynecology
PROC: 0UT74ZZ Resection of Bilateral Fallopian Tubes, Percutaneous Endoscopic Approach (ICD-10-PCS; 2017-12-06)
PROC: 0DNW4ZZ Release Peritoneum, Percutaneous Endoscopic Approach (ICD-10-PCS; 2017-12-06)
PROC: 0UT24ZZ Resection of Bilateral Ovaries, Percutaneous Endoscopic Approach (ICD-10-PCS; principal; 2017-12-06 07:30)
DX: D27.1 Benign neoplasm of left ovary (principal); N83.01 Follicular cyst of right ovary; K66.0 Peritoneal adhesions (postprocedural) (postinfection); I48.91 Unspecified atrial fibrillation; Z79.82 Long term (current) use of aspirin
CPT/HCPCS: 49329; 58661; A9270; J0131; J0690; J7120

== ENCOUNTER 2018-03-28 13:43 | Outpatient (CLI) | payer OTHER | END 2018-03-28 13:44 | disposition home or self-care (01) | LOC: DI 13:43 | PROVIDERS: ATTEND Physician Assistant Medical | DX: I48.91 Unspecified atrial fibrillation (principal); I51.7 Cardiomegaly | CPT/HCPCS: 93306 ==

== ENCOUNTER 2018-03-28 14:51 | Outpatient (CLI) | payer OTHER ==
--- NOTE | 2018-03-29 16:58 | Mammography Report ---
DIGITAL SCREENING MAMMOGRAM: 03/28/2018 CLINICAL INDICATION: A 62-year-old with history of late childbearing, personal history of left breast cancer status post lumpectomy and chemoradiation. COMPARISON: 01/2017, 12/2015, 10/2014, 09/2013, 08/2012, 08/2011. TECHNIQUE: Routine CC and MLO projections were obtained of the breasts. FINDINGS: The breasts again demonstrate scattered fibroglandular densities bilaterally. Postoperative and posttreatment changes in the left breast are stable. No suspicious masses, clustered microcalcifications, or regions of architectural distortion are identified. IMPRESSION: BENIGN FINDINGS. RECOMMENDATION: Routine annual screening unless otherwise clinically indicated. BIRADS category 2 benign findings. STANDARD QUALIFYING STATEMENTS 1. This examination was reviewed with the aid of Computed-Aided Detection (CAD). 2. A negative or benign imaging report should not delay biopsy if clinically suspicious findings are present. Consider surgical consultation if warranted. More than 5% of cancers are not identified by imaging. 3. Dense breasts may obscure an underlying neoplasm. TD: 03/29/2018 15:07
== END 2018-03-28 14:52 | disposition home or self-care (01) ==
LOC: DI 14:51
PROVIDERS: ATTEND Physician Assistant Medical
DX: Z12.31 Encounter for screening mammogram for malignant neoplasm of breast (principal); Z08 Encounter for follow-up examination after completed treatment for malignant neoplasm; Z85.3 Personal history of malignant neoplasm of breast
CPT/HCPCS: 77067

== ENCOUNTER 2018-05-14 10:06 | Emergency (ER) | payer OTHER ==
[2018-05-14 10:48] LABS: BASOPHILS # (AUTO) 0.1 10^3/uL (0.0-0.1); BASOPHILS % (AUTO) 0.9 %; EOSINOPHILS % (AUTO) 0.3 %; HGB - HEMOGLOBIN 13.5 g/dL (12.0-16.0); LYMPHOCYTES # (AUTO) 1.2 10^3/uL (1.5-3.5); LYMPHOCYTES % (AUTO) 12.7 %; MEAN CORPUSCULAR HGB CONC 33.7 g/dL (32.0-36.0); MEAN CORPUSCULAR VOLUME 86.1 fL (81.0-99.0); MEAN PLATELET VOLUME 7.4 fL (7.9-10.8); MONOCYTES % (AUTO) 10.4 %; NEUTROPHILS # (AUTO) 7.4 10^3/uL (1.5-6.6); NEUTROPHILS % (AUTO) 75.7 %; PLT - PLATELET COUNT 345 10^3/uL (130-450); RED BLOOD COUNT 4.66 10^6/uL (4.20-5.40); RED CELL DISTRIBUTION WIDTH 13.2 % (12.0-15.0); WHITE BLOOD COUNT 9.7 x10^3/uL (4.8-10.8)
--- NOTE | 2018-05-14 10:56 | ED Physician Documentation ---
History of Present Illness - Stated complaint Stated Complaint: RAPID HR - Chief complaint Chief Complaint: Cardiac - History obtained from History obtained from: Patient, Family - History of Present Illness Timing: How many days ago (3) - Additonal information Additional information: 62-year-old female with a history of intermittent atrial fibrillation developed symptoms on Monday afternoon about 3 days ago and she had some vomiting that night did not feel well the following day, spent most of the day in bed and that night developed swelling and redness of the left great toe. She has had increased swelling and redness of this toe since. She did have some shortness of breath and exertional dyspnea and lightheadedness. This morning she is taken some metoprolol and feels her heart rate is bit better now. Review of Systems Constitutional: denies: Fever Eyes: denies: Decreased vision Ears: denies: Ear pain Nose: denies: Rhinorrhea / runny nose, Congestion Throat: denies: Sore throat Cardiac: reports: Palpitations. denies: Chest pain / pressure Respiratory: reports: Dyspnea. denies: Cough GI: reports: Nausea, Vomiting. denies: Abdominal Pain : denies: Dysuria, Frequency Skin: denies: Rash Musculoskeletal: reports: Extremity pain, Extremity swelling. denies: Neck pain , Back pain Neurologic: reports: Generalized weakness. denies: Focal weakness, Numbness PD PAST MEDICAL HISTORY - Past Medical History Cardiovascular: Hypertension, Atrial fibrillation, Other Respiratory: None Endocrine/Autoimmune: None GI: GERD : Frequency HEENT: None Psych: None Musculoskeletal: Osteoarthritis Derm: None - Past Surgical History General: Other /HOBBER: Other - Present Medications Home Medications: Ambulatory Orders Medication Instructions Recorded Confirmed Cholecalciferol (Vitamin D3) 400 unit PO DAILY 04/22/14 12/05/17 [Vitamin D3] Magnesium Oxide [Magnesium] 500 mg PO DAILY 04/22/14 12/05/17 Aspirin 325 mg PO DAILY 02/25/16 12/06/17 Epinephrine [Epipen 2-Anthony] 0.3 mg IJ ONCE PRN 12/05/17 12/06/17 Lorazepam [Ativan] 0.5 mg PO ONCE PRN 12/05/17 12/05/17 Metoprolol Succinate 25 mg PO BID PRN 12/05/17 12/05/17 Amox/Clav 875/125 [Augmentin] 1 each PO Q12H #20 tablet 05/14/18 - Allergies Allergies/Adverse Reactions: Allergies Allergy/AdvReac Type Severity Reaction Status Date / Time diltiazem Allergy Angioedema Verified 05/14/18 10:33 Latex, Natural Rubber Allergy Anaphylaxis Verified 05/14/18 10:33 - Social History Does the pt smoke?: No Smoking Status: Never smoker Does the pt drink ETOH?: No Does the pt have substance abuse?: No - Immunizations Immunizations are current?: Yes PD ED PE NORMAL - Vitals Vital signs reviewed: Yes (hypotensive with wide pulse pressure. ) - General General: Alert and oriented X 3, No acute distress, Well developed/nourished - HEENT HEENT: Atraumatic, PERRL, EOMI, Ears normal, Other (dry mucous membranes ) - Neck Neck: Supple, no meningeal sign, No bony TTP - Cardiac Cardiac: No murmur, Other (irregularly irrregular heart rate and rhythm) - Respiratory Respiratory: No respiratory distress, Clear bilaterally - Abdomen Abdomen: Soft, Non tender - Back Back: No CVA TTP, No spinal TTP - Derm Derm: Normal color, Warm and dry, No rash - Extremities Extremities: No deformity, No edema, Other (There is blanching erythema to the left great toe with extension to the dorsum of the foot.) - Neuro Neuro: Alert and oriented X 3, video tape editor 2-12 intact, No motor deficit, No sensory deficit, Normal speech Eye Opening: Spontaneous Motor: Obeys Commands Verbal: Oriented GCS Score: 15 - Psych Psych: Normal mood, Normal affect Results - Vitals Vitals: Vital Signs - 24 hr 05/14/18 05/14/18 05/14/18 10:10 11:23 12:42 Temperature 36.7 C Heart Rate 99 103 H 78 Respiratory 18 17 15 Rate Blood Pressure 92/51 L 92/63 96/69 O2 Saturation 97 100 92 Oxygen O2 Source Room air - EKG (time done) 1015 Rhythm: Atrial fibrillation QRS: LVH Ischemia: Other (LVH strain pattern with sT elevation in V2 and V3) - Labs Labs: Laboratory Tests 05/14/18 05/14/18 05/14/18 10:22 10:22 10:22 WBC 9.7 RBC 4.66 Hgb 13.5 Hct 40.2 MCV 86.1 MCH 29.0 MCHC 33.7 RDW 13.2 Plt Count 345 MPV 7.4 L Neut # (Auto) 7.4 H Lymph # (Auto) 1.2 L [place] # (Auto) 1.0 Eos # (Auto) 0.0 Baso # (Auto) 0.1 Absolute Nucleated RBC 0.00 Nucleated RBC % 0.0 Sodium 130 L Potassium 3.6 Chloride 96 L Carbon Dioxide 24 Anion Gap 10.0 BUN 21 H Creatinine 0.9 Estimated GFR (MDRD) 63 L Glucose 132 H Calcium 8.8 Total Bilirubin 0.6 AST 24 ALT 17 Alkaline Phosphatase 55 Troponin I < 0.04 Total Protein 7.2 Albumin 3.2 Globulin 4.0 Albumin/Globulin Ratio 0.8 L Lipase 36 Urine Color Urine Clarity Urine pH Ur Specific Barnes Urine Protein Urine Glucose (UA) Urine Ketones Urine Occult Blood Urine Nitrite Urine Bilirubin Urine Urobilinogen Ur Leukocyte Esterase Ur Microscopic Review Urine Culture Comments 05/14/18 12:25 WBC RBC Hgb Hct MCV MCH MCHC RDW Plt Count MPV Neut # (Auto) Lymph # (Auto) [place] # (Auto) Eos # (Auto) Baso # (Auto) Absolute Nucleated RBC Nucleated RBC % Sodium Potassium Chloride Carbon Dioxide Anion Gap BUN Creatinine Estimated GFR (MDRD) Glucose Calcium Total Bilirubin AST ALT Alkaline Phosphatase Troponin I Total Protein Albumin Globulin Albumin/Globulin Ratio Lipase Urine Color YELLOW Urine Clarity CLEAR Urine pH 6.0 Ur Specific Barnes 1.010 Urine Protein NEGATIVE Urine Glucose (UA) NEGATIVE Urine Ketones 15 H Urine Occult Blood TRACE-LYSE Urine Nitrite NEGATIVE Urine Bilirubin NEGATIVE Urine Urobilinogen 0.2 (NORMAL) Ur Leukocyte Esterase NEGATIVE Ur Microscopic Review NOT INDICATED Urine Culture Comments NOT INDICATED - Rads (name of study) 2 veiw chest Radiology: Prelim report reviewed (Impression: 1. Asymmetric left apical opacity concerning for airspace disease and potential atelectasis. 2 right nipple shadow versus lung nodule. 3 prior left mastectomy. 4 suggest contrast- enhanced CT to further assess.), EMP read indepedently, See rad report CT chest with Radiology: Prelim report reviewed (Impression: 1. 3.5 x 2.5 x 2.2 cm irregular density left lung apex with a differential between atypical pneumonia versus mass lesion. If mass lesion, appearance favors primary lung cancer, but does not exclude metastatic disease. The calcification in of itself, probably benign but may be demineralized by the inflammatory or malignant process surrounding it. To small faint groundglass opacity in the lingula. 3 superficial symmetrical anterior bibasilar interstitial prominence, location favors prior radiation therapy, versus acute inflammatory process. For illness this lady has prior outside CT scans documenting the stability of the dominant finding left lung apex in the lingular ground glass opacity, further workup and evaluation of the left upper lobe lesion at this time recommended. Follow-up chest CT 6 months recommended to monitor lingular groundglass opacity.), EMP read indepedently, See rad report Procedures - IVC sono (time) 110 Bedside IVC sono: IVC measures (cm) (1.92), Euvolemia PD MEDICAL DECISION MAKING - ED course Complexity details: reviewed old records, reviewed results, re-evaluated patient , considered differential, d/w patient, d/w family ED course: 62-year-old female with a history of intermittent atrial fibrillation has developed increased heart rate 3 days ago and has been ill. She has improved heart rate on arrival to the emergency department after taking metoprolol. She appears to have cellulitis of the left great toe and foot. She is administered intravenous fluids and Rocephin and workup is begun. Work up reveals a mass in the left apex and something starting in the lingula. Both will need follow up after treatment for infection. She is given IV rocephin here and we will put her on some augmentin as she has both cellulitis and the pneumonia. - Sepsis Event Vital Signs: Vital Signs - 24 hr 05/14/18 05/14/18 05/14/18 10:10 11:23 12:42 Temperature 36.7 C Heart Rate 99 103 H 78 Respiratory 18 17 15 Rate Blood Pressure 92/51 L 92/63 96/69 O2 Saturation 97 100 92 Oxygen O2 Source Room air Departure - Departure Disposition: 01 Home, Self Care Clinical Impression: Cellulitis of foot, left Pneumonia Qualifiers: Pneumonia type: due to unspecified organism Laterality: left Lung location: upper lobe of lung Qualified Code(s): J18.1 - Lobar pneumonia, unspecified organism Condition: Stable Instructions: ED Pneumonia Adult, ED Infec Skin Cellulitis Follow-Up: Dorcas Rodriguez PA-C [Primary Care Provider] - Prescriptions: Amox/Clav 875/125 [Augmentin] 1 each PO Q12H #20 tablet Comments: There are findings on your CAT scan which will require a follow-up after treatment for pneumonia. Follow-up with your primary care doctor within the next 3 weeks.
[2018-05-14] MEDS ORDERED: SODIUM CHLORIDE 0.9% 1,000 ML IV ONE (11:09)
[2018-05-14 11:10] LABS: ALBUMIN 3.2 g/dL (3.2-5.5); ALBUMIN/GLOBULIN RATIO 0.8 (1.0-2.2); BILIRUBIN,TOTAL 0.6 mg/dL (0.2-1.0); CALCIUM 8.8 mg/dL (8.5-10.3); CREATININE 0.9 mg/dL (0.4-1.0); TOTAL PROTEIN 7.2 g/dL (6.7-8.2)
[2018-05-14] MEDS ORDERED: cefTRIAXone 1 GM in SODIUM CHLORIDE 0.9% MINIBAG 100 ML IV STA (11:10)
--- NOTE | 2018-05-14 11:40 | XRAY Report ---
Procedure Date: 05/14/2018 Accession Number: [id number] / [id number] Procedure: XR - Chest 2 View X-Ray CPT Code: 44686 FULL RESULT: EXAM: CHEST RADIOGRAPHY EXAM DATE: 05/14/2018 11:25 AM. CLINICAL HISTORY: Shortness of breath and atrial fibrillation. COMPARISON: CHEST 2 VIEW 12/05/2017. TECHNIQUE: 2 views. FINDINGS: Lungs/Pleura: Asymmetric left apical opacity. Right lower lung nodule versus nipple shadow. Mediastinum: Heart and mediastinal contours are unremarkable. Other: Prior left mastectomy and axillary lymph node dissection. Scoliosis. IMPRESSION: 1. Asymmetric left apical opacity concerning for airspace disease and potential atelectasis. 2. Right nipple shadow versus lung nodule. 3. Prior left mastectomy. 4. Suggest contrast-enhanced chest CT to further assess. RADIA
[2018-05-14 12:38] LABS: BILIRUBIN,URINE NEGATIVE (NEGATIVE); GLUCOSE, URINE (UA) NEGATIVE (NEGATIVE); KETONES,URINE (UA) 15 mg/dL (NEGATIVE); LEUKOCYTE ESTERASE, URINE NEGATIVE (NEGATIVE); NITRITE,URINE NEGATIVE (NEGATIVE); OCCULT BLOOD,URINE TRACE-LYSE (NEGATIVE); PROTEIN,URINE NEGATIVE (NEGATIVE); UROBILINOGEN,URINE 0.2 (NORMAL) E.U./dL (NORMAL)
[2018-05-14 12:40] LABS: CLARITY,URINE CLEAR (CLEAR)
[2018-05-14 12:43] VITALS: BP 96/69
[2018-05-14] MEDS ORDERED: IOPAMIDOL-300 100 ML VIAL ONE (12:57)
[2018-05-14] MEDS ORDERED: IOPAMIDOL-300 100 ML VIAL IVP ONE (13:09)
--- NOTE | 2018-05-14 13:49 | CT Report ---
Procedure Date: 05/14/2018 Accession Number: [id number] / [id number] Procedure: CT - Chest W/ CPT Code: FULL RESULT: EXAM: CT CHEST EXAM DATE: 05/14/2018 01:20 PM. CLINICAL HISTORY: Shortness of breath. Atrial fibrillation. Breast cancer. Possible right lung base nodule. COMPARISONS: No prior CT exam. 2 view chest 05/14/2018, 12/05/2017. TECHNIQUE: Routine helical CT imaging was performed through the chest. IV contrast: 80 cc Isovue 300. Reconstructions: Coronal and sagittal. In accordance with CT protocol optimization, one or more of the following dose reduction techniques were utilized for this exam: automated exposure control, adjustment of mA and/or KV based on patient size, or use of iterative reconstructive technique. FINDINGS: Lungs/Pleura: No right-sided pulmonary nodules. Small amount of linear pleural scarring inferior lateral aspect right major fissure. Slight uniform peripheral interstitial prominence anterior 1 cm medial segment right middle lobe. 12 mm oval inhomogeneous calcification apex left lung, asymmetrically located within a 2.2 x 2.5 x 3.5 cm irregular soft tissue component. Uniform peripheral interstitial prominence anterior 1.5 cm lingula, inferior segment. 1.5 x 1.0 cm faint groundglass peripheral density inferior segment of the lingula, adjacent to the major fissure axial image 35 series 4. Mediastinum: Normal. No adenopathy or masses. The heart and great vessels are normal. Bones: Unremarkable. Visualized Abdomen: 0.9 cm low-density lesion left lobe liver axial image 68 series 3. 13 mm low-density lesion axial image 63 series 3. Suggestion of several additional 4 mm hepatic hypodensities as well. Other: Left breast surgery. Left axillary lymph node dissection. IMPRESSION: 1. 3.5 x 2.5 x 2.2 cm irregular density left lung apex, with the differential between atypical pneumonia versus mass lesion. If mass lesion, appearance favors a primary lung cancer, but does not exclude metastatic disease. The calcification in and of itself, probably benign, but may be demineralized by the inflammatory or malignant process surrounding it. 2. Small faint groundglass opacity in the lingula. 3. Superficial symmetrical anterior bibasilar interstitial prominence, location favors prior radiation therapy, versus acute inflammatory process. 4. Several small nonspecific hepatic hypodensities, too small to characterize. 5. Unless this lady has prior outside CT scans documenting the stability of these findings, especially as regards to the dominant finding left lung apex and the lingular groundglass opacity, further workup and evaluation of the left upper lobe lesion at this time recommended. Follow-up chest CT 6 months recommended to monitor lingular groundglass opacity. RADIA
[2018-05-14] MEDS ORDERED: DEXAMETHASONE 10 MG/ML VIAL PO STA (14:07)
== END 2018-05-14 14:23 | disposition home or self-care (01) ==
LOC: ED 10:06
DX: L03.116 Cellulitis of left lower limb (principal); J18.1 Lobar pneumonia, unspecified organism; I48.91 Unspecified atrial fibrillation; R91.8 Other nonspecific abnormal finding of lung field
CPT/HCPCS: 36415; 71046; 71260; 80053; 81003; 83690; 84484; 85025; 93005; 96365; 99283; 99284; Q9967; 81001; 87086

== ENCOUNTER 2018-12-11 16:39 | Outpatient (CLI) | payer OTHER ==
--- NOTE | 2018-12-12 01:54 | Ultrasound Report ---
Reason: UMBILICAL HERNIA Procedure Date: 12/11/2018 Accession Number: [id number] / [id number] Procedure: US - Abdomen Limited CPT Code: FULL RESULT: EXAM: ABDOMEN ULTRASOUND LIMITED EXAM DATE: 12/11/2018 05:18 PM. CLINICAL HISTORY: Umbilical hernia. COMPARISON: None. TECHNIQUE: Real-time scanning was performed with static images obtained. FINDINGS: Focused evaluation of the umbilical region with the patient in the upright position demonstrates no evidence of hernia. No mass or fluid collection seen. IMPRESSION: No evidence of umbilical/periumbilical hernia. RADIA
== END 2018-12-11 16:40 | disposition home or self-care (01) ==
LOC: DI 16:39
PROVIDERS: ATTEND Nurse Practitioner
DX: K42.9 Umbilical hernia without obstruction or gangrene (principal)
CPT/HCPCS: 76705

== ENCOUNTER 2019-02-01 18:09 | Emergency (ER) | payer OTHER ==
[2019-02-01 18:28] VITALS: BP 124/64
--- NOTE | 2019-02-01 19:00 | ED Physician Documentation ---
History of Present Illness - Stated complaint Stated Complaint: FEVER - Chief complaint Chief Complaint: General - History obtained from History obtained from: Patient - History of Present Illness Timing: How many weeks ago (2) Pain level max: 4 Pain level now: 3 - Additonal information Additional information: cough for the past 9 days, now spiking fevers. 103 at home. Nothing makes it better or worse. Does have rhinorrhea and congestion as well. 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 - Present Medications Home Medications: Ambulatory Orders Medication Instructions Recorded Confirmed Cholecalciferol (Vitamin D3) 400 unit PO DAILY 04/22/14 12/05/17 [Vitamin D3] Magnesium Oxide [Magnesium] 500 mg PO DAILY 04/22/14 12/05/17 Aspirin 325 mg PO DAILY 02/25/16 12/06/17 EPINEPHrine [Epipen 2-Anthony] 0.3 mg IJ ONCE PRN 12/05/17 12/06/17 Lorazepam [Ativan] 0.5 mg PO ONCE PRN 12/05/17 12/05/17 Metoprolol Succinate 25 mg PO BID PRN 12/05/17 12/05/17 Amox/Clav 875/125 [Augmentin] 1 each PO Q12H #20 tablet 05/14/18 Benzonatate [Tessalon Perle] 100 - 200 mg PO TID PRN #30 capsule 02/01/19 Doxycycline Hyclate 100 mg PO BID #20 capsule 02/01/19 - Allergies Allergies/Adverse Reactions: Allergies Allergy/AdvReac Type Severity Reaction Status Date / Time diltiazem Allergy Angioedema Verified 02/01/19 18:20 Latex, Natural Rubber Allergy Anaphylaxis Verified 02/01/19 18:20 - Social History Does the pt smoke?: No Smoking Status: Never smoker Does the pt drink ETOH?: No Does the pt have substance abuse?: No - Immunizations Immunizations are current?: Yes PD ED PE NORMAL - Vitals Vital signs reviewed: Yes - General General: Alert and oriented X 3, No acute distress - HEENT HEENT: Moist mucous membranes - Neck Neck: Supple, no meningeal sign - Cardiac Cardiac: RRR - Respiratory Respiratory: No respiratory distress, Other (crackles B lower lobes) - Abdomen Abdomen: Soft, Non tender, Non distended - Derm Derm: Warm and dry - Neuro Neuro: Alert and oriented X 3 Results - Vitals Vitals: Vital Signs - 24 hr 02/01/19 18:14 Temperature 38.4 C H Heart Rate 97 Respiratory 20 Rate Blood Pressure 124/64 O2 Saturation 97 Oxygen O2 Source Room air - Rads (name of study) cxr Radiology: Prelim report reviewed, EMP read contemporaneously, See rad report (New mild right and minimal left wispy basilar airspace opacities which may reflect mild bronchopneumonia or atelectasis. ) PD MEDICAL DECISION MAKING - ED course Complexity details: re-evaluated patient, considered differential, d/w patient, d/w family ED course: 63-year-old female with pneumonia. Will place on doxycycline for home. She is well-appearing, nontoxic. We will have her follow-up with her doctor for further care. No hypoxia. No respiratory distress. Patient counseled regarding signs and symptoms for which I believe and urgent re-evaluation would be necessary. Patient with good understanding of and agreement to plan and is comfortable going home at this time This document was made in part using voice recognition software. While efforts are made to proofread this document, sound alike and grammatical errors may occur. Departure - Departure Disposition: 01 Home, Self Care Clinical Impression: Pneumonia Qualifiers: Pneumonia type: due to unspecified organism Laterality: bilateral Lung location: lower lobe of lung Qualified Code(s): J18.1 - Lobar pneumonia, unspecified organism Condition: Good Instructions: ED Pneumonia Adult Follow-Up: Dorcas Rodriguez PA-C [Primary Care Provider] - Within 1 week Prescriptions: Benzonatate [Tessalon Perle] 100 - 200 mg PO TID PRN #30 capsule PRN Reason: Cough Doxycycline Hyclate 100 mg PO BID #20 capsule Comments: Take all antibiotics until gone. Return if you worsen. Do not take magnesium or calcium while taking the doxycycline. Discharge Date/Time: 02/01/19 19:26
--- NOTE | 2019-02-01 19:13 | XRAY Report ---
Reason: cough Procedure Date: 02/01/2019 Accession Number: [id number] / [id number] Procedure: XR - Chest 2 View X-Ray CPT Code: 73273 FULL RESULT: EXAM: CHEST RADIOGRAPHY EXAM DATE: 02/01/2019 06:40 PM. CLINICAL HISTORY: Cough. Fever. COMPARISON: CHEST 2 VIEW PA/LAT 06/13/2018 3:39 PM. TECHNIQUE: 2 views. FINDINGS: Lungs/Pleura: There is no mild right and minimal left wispy basilar airspace opacity. Upper lungs are clear. No generalized interstitial abnormality. No pneumothorax or pleural fluid. Mediastinum: Heart and mediastinal contours are unremarkable. Other: Mild right convex upper left convex lower thoracic spine curvature. Surgical clips in the left axilla. Evidence of prior left mastectomy. IMPRESSION: New mild right and minimal left wispy basilar airspace opacities which may reflect mild bronchopneumonia or atelectasis. RADIA
[2019-02-01] MEDS ORDERED: DOXYCYCLINE 100 MG TABLET PO STA (19:18)
== END 2019-02-01 19:26 | disposition home or self-care (01) ==
LOC: ED 18:09
DX: J18.1 Lobar pneumonia, unspecified organism (principal); I10 Essential (primary) hypertension; Z79.82 Long term (current) use of aspirin
CPT/HCPCS: 71046; 99283; A9270

== ENCOUNTER 2019-03-29 14:13 | Outpatient (CLI) | payer OTHER ==
--- NOTE | 2019-04-01 08:47 | Mammography Report ---
Reason: SCREENING MAMMO Procedure Date: 03/29/2019 Accession Number: [id number] / [id number] Procedure: CABRERA - Screening Mammo w/Carlo CPT Code: FULL RESULT: EXAM: Screening Mammo w/Carlo DATE: 03/29/2019 2:48 PM CLINICAL HISTORY: Screening encounter. History of late childbearing. Personal history of breast cancer status post lumpectomy in 2001, left breast. TECHNIQUE: (B) - Bilateral CC, laterally exaggerated CC, MLO views were obtained. COMPARISON: 03/28/2018 through 11/05/2014. PARENCHYMAL PATTERN: (A) - The breast(s) demonstrate(s) scattered fibroglandular densities. FINDINGS: Postsurgical changes in the left breast are stable, typically benign. There are no suspicious masses, calcifications, or areas of distortion. IMPRESSION: Benign findings. BI-RADS category 2. RECOMMENDATION: (ANNUAL) - Recommend routine annual screening mammography. BI-RADS CATEGORY: (2) - Benign Findings. STANDARD QUALIFYING STATEMENTS: 1. This examination was not reviewed with the aid of Computer-Aided Detection (CAD). 2. A negative or benign imaging report should not preclude biopsy if clinically suspicious findings are present. 3. Dense breasts may obscure an underlying neoplasm. 4. This examination was reviewed with the aid of 3D breast imaging (tomosynthesis).
== END 2019-03-29 14:14 | disposition home or self-care (01) ==
LOC: DI 14:13
DX: Z12.31 Encounter for screening mammogram for malignant neoplasm of breast (principal); Z08 Encounter for follow-up examination after completed treatment for malignant neoplasm; Z85.3 Personal history of malignant neoplasm of breast
CPT/HCPCS: 77063; 77067

== ENCOUNTER 2019-03-29 14:14 | Outpatient (CLI) | payer OTHER ==
--- NOTE | 2019-04-01 08:59 | DEXA Report ---
Reason: OSTEOPOROSIS Procedure Date: 03/29/2019 Accession Number: [id number] / [id number] Procedure: DEX - Dexa Spine and/or Hip CPT Code: FULL RESULT: EXAM: Dexa Spine and/or Hip DATE: 03/29/2019 2:59 PM CLINICAL HISTORY: OSTEOPOROSIS TECHNIQUE: Dual energy x-ray absorptiometry (DXA) was performed on a [employer] System. Regions measured are the AP Spine, femoral neck, and if needed forearm. COMPARISON: None. In accordance with the International Society for Clinical Densitometry (ISCD) guidelines, data from previous exams may be reanalyzed using current recommendations and techniques. This is done to allow a more accurate basis for comparison with the current study. FINDINGS: The data for the lumbar spine is as follows: BMD (g/cm/cm) T-SCORE Z-SCORE REGION L1 0.902 -1.9 -0.3 L2 0.966 -2.0 -0.3 L3 1.160 -0.3 1.3 L4 1.188 -0.1 1.5 TOTAL 1.060 -1.0 0.6 NOTE: All evaluable vertebrae are used for classification The data for the hip is as follows: BMD (g/cm/cm) T-SCORE Z-SCORE REGION Neck 0.933 -0.8 0.7 TOTAL 0.941 -0.5 0.7 NOTE: The femoral neck or total proximal femur, whichever is lowest, is used for classification. IMPRESSION: THE WHO CLASSIFICATION BASED ON THE INTERNATIONAL REFERENCE STANDARD IS NORMAL. THE FRACTURE RISK IS NOT INCREASED. RECOMMENDATION: Patients with diagnosis of osteoporosis or osteopenia should have regular bone mineral density assessment. For those eligible for Medicare, routine testing is allowed once every 2 years. Testing frequency can be increased for patients who have rapidly progressing disease or for those who are receiving medical therapy to restore bone mass. COMMENT: World Health Organization (WHO) definitions for osteoporosis and osteopenia: NORMAL BMD: T-score at -1.0 or higher, fracture risk is low OSTEOPENIA BMD: T-score between -1.0 and -2.5, fracture risk is increased. OSTEOPOROSIS BMD: T-score at -2.5 or lower, fracture risk is high. National Osteoporosis Foundation recommends: 1. Obtain adequate dietary calcium (at least 1200 mg per day) and vitamin D (400-800 international units per day). 2. Participate, as appropriate, in regular weightbearing and muscle-strengthening exercise. 3. Avoid tobacco use and reduce alcohol and caffeine intake. 4. For more detailed information see the website at www.NOF.org.
== END 2019-03-29 14:15 | disposition home or self-care (01) ==
LOC: DI 14:14
PROVIDERS: ATTEND Physician Assistant Medical
DX: M81.0 Age-related osteoporosis without current pathological fracture (principal)
CPT/HCPCS: 77080

== ENCOUNTER 2019-06-10 14:30 | Outpatient (CLI) | payer OTHER ==
--- NOTE | 2019-06-11 15:05 | XRAY Report ---
Reason: COUGH,CHRONIC Procedure Date: 06/10/2019 Accession Number: [id number] / [id number] Procedure: WCP - Chest 2 View X-Ray CPT Code: 13204 FULL RESULT: EXAM: CHEST RADIOGRAPHY EXAM DATE: 06/10/2019 02:30 PM. CLINICAL HISTORY: Cough, chronic. COMPARISON: CHEST 2 VIEW 02/01/2019 6:31 PM. TECHNIQUE: 2 views. FINDINGS: Lungs/Pleura: Hyperinflation. No consolidation. No vascular congestion. No pneumothorax. No pleural effusions. Biapical parenchymal scarring and pleural thickening. Mediastinum: Heart size normal. Aorta is mildly tortuous. Other: Degenerative changes of the thoracic spine. S-shaped thoracic scoliosis. Surgical clips in the left axilla again seen. IMPRESSION: 1. Hyperinflation. 2. Biapical parenchymal scarring and pleural thickening, stable. 3. No acute disease. RADIA
== END 2019-06-10 23:59 | disposition home or self-care (01) ==
LOC: DI.WCP 14:30
PROVIDERS: ATTEND Physician Assistant Medical
DX: R05 Cough (principal)
CPT/HCPCS: 71046

== ENCOUNTER 2019-11-14 14:54 | Outpatient (CLI) | payer OTHER ==
[2019-11-14 18:56] LABS: BASOPHILS # (AUTO) 0.1 10^3/uL (0.0-0.1); BASOPHILS % (AUTO) 0.9 %; EOSINOPHILS # (AUTO) 0.2 10^3/uL (0.0-0.7); EOSINOPHILS % (AUTO) 2.9 %; HGB - HEMOGLOBIN 12.9 g/dL (12.0-16.0); LYMPHOCYTES # (AUTO) 1.9 10^3/uL (1.5-3.5); LYMPHOCYTES % (AUTO) 27.5 %; MEAN CORPUSCULAR HEMOGLOBIN 29.1 pg (27.0-31.0); MEAN CORPUSCULAR HGB CONC 31.5 g/dL (32.0-36.0); MEAN CORPUSCULAR VOLUME 92.3 fL (81.0-99.0); MEAN PLATELET VOLUME 9.6 fL (7.9-10.8); MONOCYTES # (AUTO) 0.6 10^3/uL (0.0-1.0); MONOCYTES % (AUTO) 8.6 %; NEUTROPHILS # (AUTO) 4.1 10^3/uL (1.5-6.6); NEUTROPHILS % (AUTO) 59.8 %; PLT - PLATELET COUNT 278 10^3/uL (130-450); RED BLOOD COUNT 4.43 10^6/uL (4.20-5.40); RED CELL DISTRIBUTION WIDTH 12.7 % (12.0-15.0); WHITE BLOOD COUNT 6.8 x10^3/uL (4.8-10.8)
== END 2019-11-14 23:59 | disposition home or self-care (01) ==
LOC: LAB.WCP 14:54
PROVIDERS: ATTEND Physician Assistant Medical
DX: I48.91 Unspecified atrial fibrillation (principal); R51 Headache
CPT/HCPCS: 36415; 84443; 85025; 85651; 86140

== ENCOUNTER 2019-11-25 14:25 | Outpatient (CLI) | payer OTHER ==
--- NOTE | 2019-11-26 00:42 | SLEEP CARE CONSULTATION ---
Information from patient questionnaire entered by Payton Mayer. I have reviewed and concur with the information entered by Payton Mayer. This document represents the service I personally performed and the decisions made by me, Mark Sorenson MD, [facility]. History of Present Illness Reason for Visit: New patient Chief Complaint: reports: Insomnia, Unrefreshed sleep, Fatigue, Frequent awakenings at night Duration of Symptoms: 15+ years Usual bedtime: 2200 Time it takes to fall asleep: 5-90 minutes Snores at night: Yes Observed to quit breathing while asleep: No Sleeps alone due to snoring: No Number of times waking at night: 4-8+ Reasons for waking at night: reports: Pain (hip, leg cramps), Bathroom, Other (noise) Toss, Turn, or Twitch while sleeping: Yes Recalls having dreams: Yes Usually gets out of bed at: 4131-4211 Feels refreshed in the morning: No Morning headache: Yes (once in a while) Sleepy or fatigued during the day: Yes Ever fallen asleep while driving: No Takes day naps: Yes Prior sleep studies: No Additional HPI information: I had the pleasure of seeing Ms. Sam today regarding the possibility of her having a sleep disorder. As you know, she is a 64 year old lady who complains of insomnia for the past 15+ years. She also has paroxysmal atrial fibrillation. The patient tells me that she normally goes to bed around 10 pm, and it takes her approximately 15 - 90 minutes to fall asleep. She has been told that she snores loudly and irregularly at night. She has never been observed to stop breathing in her sleep. Her spouse sleeps in a separate room but because of his snore rather than hers. She can recall waking up on the average of 4 - 8 times during the night. Most of the time she wakes up because of having to use the bathroom. She has never awakened because of her own snoring, choking, or having to gasp for air. There is a lot of tossing and turning in her sleep. No somniloquy (sleep talking) or somnambulism (sleep walking). Generally she can recall having dreams. In the morning she usually gets up out of the bed around 8 - 10 a.m. not feeling refreshed nor rested. She usually does not have a morning headache. During the day she complains of feeling sleepy and fatigued. Her score on [place] Sleepiness Scale is 3 out of 24. She has never fallen asleep while driving nor has had any accident due to sleepiness. She usually does not take naps during the day. Upon falling asleep during the day she denies having vivid dreams. She had one sleep paralysis, but never experienced cataplexy or symptoms of restless leg syndrome. She denies having impaired concentration during the day. 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 Patient is and lives in [place]. Have you smoked in the past 12 months: No Alcohol use: Yes Alcohol amount and frequency: 1/ week Caffeine use: Yes Caffeine amount and frequency: 1 big cup/day Family History Family history of sleep disordered breathing: Yes Family Hx Sleep Apnea: Father: Snoring, Sibling: Snoring Allergies and Home Medications Drug allergies reviewed: Yes Home medication list reviewed: Yes Allergy and home medication list: Meds: lorazepam once a week, Kirland sleep aid, flecanide, metoprolol Allergies: diltiazem Review of Systems Cardiovascular: reports: palpitations Respiratory: denies: shortness of breath, wheeze, sputum production, chronic cough, other Gastrointestinal: denies: heartburn, difficulty swallowing, nausea, vomitting, diarrhea, abdominal pain, other Urinary: reports: urgency Neurological: reports: headaches Psychiatric: denies: Attention Deficit Hyperactivity, anxiety, depression, mood disorder, claustrophobia, other Ear/Nose/Throat: reports: dry mouth/throat, wisdom teeth removed Endocrine: denies: thyroid disease, history of goiter, sluggishness, too hot or cold, excessive thirst, increased appetite, increased urination, unexplained weakness, other Musculoskeletal: denies: joint pain, neck pain, back pain, joint swelling, muscle pain or cramping, mobility problems, other Immunologic: reports: sneezing, itching (neck/collarbone), allergies to food or environment (latex) Physical Exam Vital signs obtained and entered by: Dr. Sorenson Blood Pressure: 135/79 Cuff size: regular Heart Rate: 55 (regular) O2 Saturation: 99 Height: 5 ft 6 in Weight: 145 lb Body Mass Index: 23.3 BMI Classification: Healthy weight Neck circumference: 13 Mood/affect: Normal HEENT: No craniofacial malformation Nostrils: patent to airflow Turbinates: normal Septum: midline Mouth and throat: narrow oropharynx Soft palate: long Hard palate: normal Uvula: normal Uvula visualization: 50% Mallampati Class II Tongue: normal in size Tonsils: small Chin and jaw: normal size and position Neck: normal w/o lymphadenopathy or thyromegaly Heart: regular rate and rhythm Lungs: clear bilaterally Abdomen: soft, non-tender Extremities: no edema or clubbing Neurologic: intact, no focal deficits Impression and Plan IMPRESSION: 1. Possible Obstructive Sleep Apnea-Hypopnea Syndrome, as suggested by history of loud snoring, frequent awakenings during the night, unrefreshed sleep, persistent fatigue. Narrow oropharynx is a common predisposing factor for obstructive sleep apnea-hypopnea syndrome. Obstructive sleep apnea, left untreated, can increase the risk of recurrent paroxysmal atrial fibrillation. Pathophysiology of sleep-disordered breathing was discussed. I recommend proceeding to polysomnography to confirm the diagnosis and to assess severity. If she has significant sleep disordered breathing, a manual CPAP titration study will also be performed to find the optimal treatment pressure. I informed the patient of what the sleep studies involve and after some discussion, she agreed to proceed. 2. Insomnia due to excessive time spent in bed. The patient presently spends 10 12 hours a night in bed trying to sleep. Assuming the normal sleep requirement of 8 hours a night, it is only appropriate that she lies awake 2 4 hours during the night. The patient was advised to limit time spent in bed to not more than 8 hours. She must not compensate for a poor night by waking up later. Plan: 1. Schedule in-laboratory polysomnography. 2. Avoid long distance driving or when feeling sleepy. 3. Avoid alcohol, sedative and muscle relaxant around bedtime. 4. Maintain a regular wake up time and spend no more than 8 hours in bed at night. Avoid naps. The patient would like 8 am to be her get up time. I instructed her to set an alarm clock at that time. Then, she should not go to bed before midnight. 5. Return in 1 to 2 weeks after the study to discuss results and initiate therapy I spent 100% of this visit face to face with the patient with greater than 50% of this was spent time counseling the patient and coordination of care.
[2019-11-26 00:43] VITALS: BP 135/79
== END 2019-11-25 14:26 | disposition home or self-care (01) ==
LOC: SC 14:25
PROVIDERS: ATTEND Internal Medicine Pulmonary Disease
DX: R53.83 Other fatigue (principal); G47.8 Other sleep disorders; R06.83 Snoring; G47.00 Insomnia, unspecified
CPT/HCPCS: 99203; 99212

== ENCOUNTER 2019-12-02 12:43 | Outpatient (CLI) | payer OTHER ==
[2019-12-02] MEDS ORDERED: GADOBUTROL 10 MMOL/10 ML VIAL IVP ONE (15:10)
--- NOTE | 2019-12-02 16:04 | MRI Report ---
Reason: HEADACHE Procedure Date: 12/02/2019 Accession Number: [id number] / [id number] Procedure: MRI - Brain W/WO CPT Code: Final Report FULL RESULT: MRI BRAIN WITHOUT AND WITH CONTRAST INDICATION: 64-year-old female with headache. TECHNIQUE: 1. T1 sagittal. 2. Fat saturated T2 coronal. 3. Axial T1 3D MP-RAGE, FLAIR, T2, T2* and DWI. 3. 10 cc of IV Gadavist. Postcontrast, T1 3D MP-RAGE axial. COMPARISON: None. FINDINGS: There is mild generalized prominence of the cerebral cortical sulci, considered within normal limits for stated age. There is mild third/lateral ventriculomegaly, almost certainly ex vacuo in nature. There appear to be a few punctate T2 hyperintensities in the frontal white matter. The signal intensity of the cortex and white matter is otherwise normal. There appear to be flow voids for the main intracranial arteries. No abnormal diffusion restriction is demonstrated. No evidence of acute or chronic hemorrhage on the T2*GRE sequence. No enhancing space-occupying mass lesion is demonstrated. No pathologic meningeal or cranial nerve enhancement is identified. There appears to be normal intravascular contrast enhancement in the dural venous sinuses and deep venous structures. This effectively excludes the possibility of dural venous sinus thrombosis. A small arachnoid granulation is identified projecting into the left transverse sinus. This should not be mistaken for an intraluminal thrombus. Limited assessment of the orbits reveals no gross pathology. There is minor mucosal thickening in the ethmoid air cells. The paranasal sinuses are otherwise clear. No mastoid or middle ear effusion is demonstrated. Marrow signal intensity in the regional skeletal structures is unremarkable. A mass is identified in the superficial lobe of the right parotid gland. It measures about 2.5 cm maximal AP by about 2.3 cm maximal transverse and 2.4 cm maximal craniocaudad. On T2 weighted sequences the lesion demonstrates heterogeneous signal intensity, however, the majority of the lesion is very T2 hyperintense. It demonstrates diffusely heterogeneous enhancement on postcontrast sequence (for example see image 61 of series 1003). There is no obvious, abnormal thickened enhancement of the mastoid portion of the right facial nerve to suggest the possibility of perineural tumor spread into the facial nerve. No other parotid mass is identified on sequences provided. IMPRESSION: 1. Imaging of the brain is unremarkable. In particular there is no evidence of hemorrhage, hydrocephalus, space-occupying mass lesion or other potential cause for headaches. 2. A roughly 2.5 x 2.3 x 2.4 cm, T2 hyperintense and heterogeneously enhancing mass is identified in the superficial lobe of the right parotid gland as described. This represents a malignant tumor until proven otherwise. Recommend referral to ENT/head and neck surgery for definitive management of this right parotid gland mass. The call report notification system was initiated by Dr. Rex Sanabria at 03:39 PM on 12/02/2019. The above call report findings were discussed with Krystle SIGALA for KAREN Herrera) by Dr. Rex Sanabria at 03:50 PM on 12/02/2019.
== END 2019-12-02 12:44 | disposition home or self-care (01) ==
LOC: DI 12:43
PROVIDERS: ATTEND Physician Assistant Medical
DX: R51 Headache (principal); K11.8 Other diseases of salivary glands
CPT/HCPCS: 70553

== ENCOUNTER 2019-12-22 14:04 | Outpatient (CLI) | payer OTHER ==
[2019-12-22 14:34] LABS: BASOPHILS # (AUTO) 0.1 10^3/uL (0.0-0.1); BASOPHILS % (AUTO) 0.8 %; EOSINOPHILS # (AUTO) 0.2 10^3/uL (0.0-0.7); EOSINOPHILS % (AUTO) 2.3 %; HGB - HEMOGLOBIN 12.1 g/dL (12.0-16.0); LYMPHOCYTES # (AUTO) 1.9 10^3/uL (1.5-3.5); LYMPHOCYTES % (AUTO) 28.7 %; MEAN CORPUSCULAR HEMOGLOBIN 29.3 pg (27.0-31.0); MEAN CORPUSCULAR HGB CONC 31.8 g/dL (32.0-36.0); MEAN CORPUSCULAR VOLUME 92.3 fL (81.0-99.0); MEAN PLATELET VOLUME 9.1 fL (7.9-10.8); MONOCYTES # (AUTO) 0.6 10^3/uL (0.0-1.0); MONOCYTES % (AUTO) 8.5 %; NEUTROPHILS % (AUTO) 59.5 %; PLT - PLATELET COUNT 228 10^3/uL (130-450); RED BLOOD COUNT 4.13 10^6/uL (4.20-5.40); RED CELL DISTRIBUTION WIDTH 12.9 % (12.0-15.0); WHITE BLOOD COUNT 6.6 x10^3/uL (4.8-10.8)
== END 2019-12-22 14:05 | disposition home or self-care (01) ==
LOC: LAB 14:04
PROVIDERS: ATTEND Physician Assistant Medical
DX: R51 Headache (principal)
CPT/HCPCS: 36415; 85025; 85651; 86140; 86200

== ENCOUNTER → 2019-12-22 | Outpatient (CLI) | payer OTHER | LOC: SC 19:30 | PROVIDERS: ATTEND Internal Medicine Pulmonary Disease | DX: G47.10 Hypersomnia, unspecified (principal); G47.00 Insomnia, unspecified; G47.8 Other sleep disorders | CPT/HCPCS: 95806 ==

== ENCOUNTER 2019-12-31 12:39 | Day surgery (SDC) | payer OTHER ==
[2019-12-31] MEDS ORDERED: LACTATED RINGERS 1,000 ML IV ONE ×2 (12:43→16:29)
[2019-12-31] MEDS ORDERED: CEFAZOLIN SODIUM IN 0.9 % NACL 2 GM/100 ML BAG IV ONE (13:02)
[2019-12-31] MEDS ORDERED: LIDOCAINE 1%-EPI 1:100000 20 ML MDV ONE (13:45)
[2019-12-31] MEDS ORDERED: BUPIVACAINE 0.5% PF 30 ML VIAL ONE (13:45)
--- NOTE | 2019-12-31 13:55 | ANESTHESIA ---
Pre-Anesthesia VS, & Labs - Diagnosis Headaches - Procedure L temporal artery biopsy Vital Signs: Temp Pulse Resp BP Pulse Ox 36.2 C L 50 L 12 118/77 99 12/31/19 12:44 12/31/19 12:44 12/31/19 12:44 12/31/19 12:44 12/31/19 12:44 Height 5 ft 6 in Weight (kg) 65.5 kg Body Mass Index 23.3 - NPO >8 hours - Is Patient ?: No - Lab Results Lab results reviewed: Yes Home Medications and Allergies Home Medications: Ambulatory Orders Flecainide [Tambocar] 50 mg PO Q12H 12/31/19 Cholecalciferol (Vitamin D3) [Vitamin D3] 400 unit PO DAILY 04/22/14 Magnesium Oxide [Magnesium] 500 mg PO DAILY 04/22/14 Aspirin 325 mg PO DAILY 02/25/16 EPINEPHrine [Epipen 2-Anthony] 0.3 mg IJ ONCE PRN 12/05/17 Lorazepam [Ativan] 0.5 mg PO ONCE PRN 12/05/17 Metoprolol Succinate 25 mg PO BID 12/05/17 Flecainide [Tambocar] 50 mg PO Q12H 12/31/19 Allergies/Adverse Reactions: Allergies Allergy/AdvReac Type Severity Reaction Status Date / Time diltiazem Allergy Angioedema Verified 02/01/19 18:20 Latex, Natural Rubber Allergy Anaphylaxis Verified 02/01/19 18:20 Anes History & Medical History - Anesthetic History Anesthesia Complications: reports: No previous complications Family history of Anesthesia Complications: Denies Family history of Malignant Hyperthermia: Denies - Medical History Cardiovascular: reports: Atrial fibrillation (intermittent, not anticoagulated) Pulmonary: reports: None Gastrointestinal: reports: None Urinary: reports: Frequency Musculoskeletal: reports: Fibromyalgia Endocrine/Autoimmune: reports: None Blood Disorders: reports: None Skin: reports: Eczema Smoking Status: Never smoker - Surgical History General: Colonoscopy, Other Gynecologic: Other (lumpectomy at L r/t breast CA) Exam General: Alert, Oriented x3, Cooperative Dental: WNL Mouth Openin Fingerbreadth Neck Mobility: Normal Mallampati classification: II Thyromental Distance: 4-6 cm Respiratory: Lungs clear, Normal breath sounds, No respiratory distress Cardiovascular: Regular rate (niraj) Neurological: Normal speech Mental/Cognitive Status: Alert/Oriented X3, Normal for patient Cognitive Status: Within normal limits Plan Anesthesia Type: MAC Consent for Procedure(s) Verified and Reviewed: Yes Code Status: Attempt Resuscitation ASA classification: 3-Severe systemic disease Is this case an emergency?: No
[2019-12-31] MEDS ORDERED: MIDAZOLAM 2 MG/2 ML VIAL IVP ONE (14:13)
[2019-12-31] MEDS ORDERED: ePHEDrine 50 MG/ML VIAL IVP ONE (14:13)
[2019-12-31] MEDS ORDERED: LIDOCAINE-MPF 2% 5 ML VIAL IM ONE (14:13)
[2019-12-31] MEDS ORDERED: fentaNYL 100 MCG/2 ML VIAL IVP ONE (14:13)
[2019-12-31] MEDS ORDERED: PROPOFOL 200 MG/20 ML VIAL IVP ONE (14:13)
[2019-12-31] MEDS ORDERED: oxyCODONE 5 MG TABLET PO PRN (14:19)
[2019-12-31] MEDS ORDERED: ONDANSETRON 4 MG/2 ML VIAL IVP PRN (14:19)
[2019-12-31] MEDS ORDERED: HYDROmorphone 0.5 MG/0.5 ML SYRINGE IVP PRN (14:19)
[2019-12-31] MEDS ORDERED: LIDOCAINE 1%-EPI 1:100000 20 ML MDV SUBQ ONE (16:00)
--- NOTE | 2019-12-31 16:36 | OPERATIVE REPORT ---
Operative Report - General Procedure Date: 12/31/19 Pre-Op Diagnosis: Headaches Procedure Performed: Left temporal artery biopsy Post Op Diagnosis: same - Procedure Note Primary Surgeon: Cele Duval MD Anesthesia Provider: Kimberly Cueva CRNA Anesthesia Technique: MAC Pathology: artery Estimated Blood Loss (mL): 10 Indications: 64yo F with headaches referred by neurologist for temporal artery biopsy. She predominantly has symptoms on the left so will plan to remove that artery. All risks, benefits, and alternatives are discussed and pt wishes to proceed. Findings: small temporal artery, 2cm removed Complications: initial difficulty locating accurately as doppler picked up deeper artery due to low blood pressure - Other Other Information/Narrative: Patient is taken to the OR suite, placed in supine position, and induced to an acceptable level of general anesthesia. The left face is prepped and draped in sterile fashion and a timeout performed with the team present. Attention is turned to the left temporal area. A doppler probe is used to identify the artery. Local anesthesia is infiltrated over the site. A 15 blade incision is used to make an incision over this. It is carried down with electrocautery. The artery was not located as expected and doppler signal remained strong but indicating deeper tissues than would be correct. Local exploration did not reveal the artery so assessed again and now, with improved blood pressure, the more superficial artery was appropriately located and exposed. It is cleared of surrounding attachments and small branching vessels are divided. Once over 2cm of artery is cleared, it is divided and the ends ligated with 3-0 silk sutures. It is passed off the field for pathology. The field is irrigated and hemostasis ensured. The dermis is closed with 3-0 vicryl in an interrupted fashion and the epidermis with 4-0 monocryl in running fashion. The area is cleaned and dried and dermabond applied. All counts were correct. Patient tolerated the procedure well, was awakened without issue, and taken to PACU hemodynamically stable.
[2019-12-31 16:56] VITALS: BP 134/68
== END 2019-12-31 12:40 | disposition home or self-care (01) ==
LOC: SDS 12:39
PROVIDERS: ATTEND Surgery
PROC: 03BT0ZX Excision of Left Temporal Artery, Open Approach, Diagnostic (ICD-10-PCS; principal; 2019-12-31 14:00)
DX: R51 Headache (principal); I48.91 Unspecified atrial fibrillation; G47.33 Obstructive sleep apnea (adult) (pediatric); M79.7 Fibromyalgia; R35.0 Frequency of micturition; Z85.3 Personal history of malignant neoplasm of breast; Z79.51 Long term (current) use of inhaled steroids; Z79.82 Long term (current) use of aspirin
CPT/HCPCS: 37609; J0690; J7120

== ENCOUNTER 2020-03-05 17:02 | Outpatient (CLI) | payer OTHER ==
--- NOTE | 2020-03-05 15:31 | SLEEP CARE CONSULTATION ---
Information from patient questionnaire entered by Payton Mayer. I have reviewed and concur with the information entered by Payton Mayer. This document represents the service I personally performed and the decisions made by me, Joan Jaramillo RN, MSN, CARE CENTER MANAGER. History of Present Illness Service Date and Time: 03/05/2020 170 Initial [place] Sleepiness Scale score: 5 Additional HPI information: KARIE SAM was called to review results of the recently performed home sleep study. I explained the pathophysiology behind obstructive sleep apnea. Patient was noted to have snoring but did not have significant sleep disordered breathing. However there was limited sleep and apnea could not be ruled out due to insufficient sleep. Patient stated she took if off after a couple of hours as uncomfortable to sleep. She was advised how weight gain could increase the risk of developing sleep apnea in the future. Sleep Study - Results Polysomnography/Home Sleep Study results: The patient underwent one night of study. The data was recorded internally to memory built into the [employer] Searcher unit and uploaded to [email or web address] website for scoring and interpretation. All raw data, graphically depicting all recorded channels, was utilized for scoring and detailed interpretive review. The standards put forth by the [place] [employer] were followed for the complete scoring by a Registered [employer] and interpretation by a Board Certified Sleep Medicine Physician. SLEEP TIME AND EFFICIENCY: The sleep study recording began at 10:33:23 PM and ended at 01:45:00 AM. Total recording time was 191.6 minutes. The total sleep time was 175.0 minutes. The sleep efficiency was 91.3 percent. The patient spent 21.6 minutes supine, and spent 153.4 minutes non-supine. The patients own estimate of sleep time was 12.50 hours. RESPIRATORY DATA: The AHI in this report is indexed to sleep time based on actigraphy. The AASM defines this as LADI. The AHI on this type 3 Home Sleep Study may understate the AHI determined on a type 1 or 2 study, since EEG is not monitored resulting in the inability to score non-desaturating hypopneas. Based on 4% Calculation: The AHI4% calculation of 1.4 per hour of recording time was based on a total of 0 scored apneas and 4 scored hypopneas with 4% desaturations. Supine AHI4%: 0.0 per hour. Non-supine AHI4%: 1.6 per hour. Oxygen Summary: Patient's baseline O2 saturation was 98.2 %. The patient spent 2.0 minutes at an oxygen saturation less than 90%, and 0.4 minutes less than 85%. The desaturation index was 3.4 events per hour sleep time. The lowest saturation was 80.2 %. SNORING: The percent of the study time spent snoring was 1.0 %. The Snoring Count was 64 . The Snoring Index was Patient Name: Karie Sam Study Date: 12/22/2019 : 1955 Page 2 of 6 21.9 . PULSE RATE REVIEW: The mean heart rate was 51 beats per minute. The rate ranged from a low of 35 to a high of 107 beats per minute. DIAGNOSIS CODE: IDIAGNOSIS CODE: suspected Obstructive Sleep Apnea (ICD-10 G47.30) Impression: The test quality is good. The test duration is inadequate. The patient slept in both supine and non-supine positions. The respiratory data revealed no significant sleep disordered breathing or hypoxemia. The pulse rate was within normal limits. Recommendation: Due to the suboptimal test duration, this test is considered inconclusive and should be repeated. An in-laboratory polysomnography is another diagnostic option. Allergies and Home Medications Home medication list reviewed: No (no changes) Review of Systems Review of systems same as previous: Yes Physical Exam Height: 5 ft 6 in Weight: 142 lb (home weight) Body Mass Index: 22.8 BMI Classification: Healthy weight Impression and Plan 1. Snoring but no significant sleep disordered breathing. However, the test length was inadequate for evaluation and considered inconclusive as the patient took off due to inability to sleep comfortable with the equipment. I explained rationale how more sleep is needed to rule out if she has significant sleep disordered breathing to see if treatment is indicated. She has atrial fibrillation. Studies show that 50% of patients with atrial fibrillation have untreated sleep apnea. Thus I discussed retesting with another home sleep study or an in lab study. She was advised to discuss with her spouse and referring provider and contact this office in one month with her choice. A copy of her sleep study can be obtained by calling medical records at [facility] or requesting online. 2.Insomnia,reported as same as initial complaint as reviewed with her. Insomnia appears to be from too early of a bedtime for her wake time. I reviewed Dr. Wilkinson recommendation of going to bed later with rationale. I advised follow up to further evaluation of insomnia. Insomnia could also be from untreated apnea. She will schedule follow up for further evaluation when she calls back about her decision about repeat sleep study. 1. Discuss sleep study results with spouse and PCP 2.Contact this office with choice about repeating sleep study. 3. Schedule follow up for further evaluation of insomnia. Visit Type: Telehealth Phone (to reduce risk of Covid 19 exposure) Patient Location: Home Location of Provider: Home Patient agrees and consents to this telehealth visit type: Yes Patient agrees to have their insurance billed: Yes Time Spent with Patient (minutes): 18 Provider Statement: I spent 100% of the Telehealth Phone Call with the patient with greater than 50% spent counseling the patient and coordination of care.
== END 2020-03-05 17:03 | disposition home or self-care (01) ==
LOC: SC 17:02
PROVIDERS: ATTEND Nurse Practitioner Family
DX: R06.83 Snoring (principal); G47.00 Insomnia, unspecified

== ENCOUNTER 2020-05-20 15:33 | Outpatient (CLI) | payer OTHER | END 2020-05-20 15:34 | disposition EMS.NT | LOC: EMS 15:33 | PROVIDERS: ATTEND Surgery | DX: K22.2 Esophageal obstruction (principal); R13.10 Dysphagia, unspecified ==

== ENCOUNTER 2020-06-18 14:58 | Outpatient (CLI) | payer OTHER, MEDICARE ==
[2020-06-18] MEDS ORDERED: IOVERSOL 320 100 ML VIAL IVP ONE (15:10)
[2020-06-18] MEDS: IOVERSOL 320 100 ML VIAL IVP ONE (15:44)
--- NOTE | 2020-06-18 17:32 | CT Report ---
PROCEDURE: ANGIO CHEST W/WO INDICATIONS: PAROXYSMAL ATRIAL FIBRILLATION CONTRAST: IV CONTRAST: Optiray 320 ml: 80 PO CONTRAST: *NO PO CONTRAST TECHNIQUE: After the administration of intravenous contrast, 2 mm thick sections acquired from the pulmonary api radha to the posterior costophrenic angles. 3-dimensional maximum intensity projection (MIP) coronal a nd sagittal reformats were then acquired through the thorax. For radiation dose reduction, the follow ing was used: automated exposure control, adjustment of mA and/or kV according to patient size. COMPARISON: Chest CT with contrast dated 05/14/2018 FINDINGS: Image quality: Excellent. Pulmonary venous anatomy: Right pulmonary veins: There is normal right-sided venous drainage, in whch the superior pulmonary ve in and inferior pulmonary vein drain independently into the left atrium. Vein diameters: Superior pulmonary vein: 1.7 cm with 1.5 cm to the first branching vein. Inferior pulmonary vein: 1.9 cm. There is approximately 1.0 cm to the first branching vein. Left pulmonary veins: There is normal left-sided venous drainage, in whch the superior pulmonary vein and inferior pulmonary vein drain independently into the left atrium. Vein diameters: Superior pulmonary vein: 1.7 cm. There is approximately 2.0 cm to the first branching vein. Inferior pulmonary vein: 1.8 cm. There is approximately 1.6 cm until the first branching vein. Pulmonary arteries: Pulmonary arteries are normal in size, and demonstrate no intraluminal filling d efects to suggest central pulmonary embolism. Lungs and pleura: The previously described left apical masslike area with calcifications is not signi ficantly changed in size or appearance. This most likely represents chronic scarring. On previous madhavi ge 10/4 it measured approximately 1.6 x 2.7 cm. On current image 103/12 it measures approximately 1.6 x 2.6 cm. There is very subtle round glass opacity in the lateral aspect of the lingula, unchanged f rom before. Reference current image 60/12 and previous image 35/4. No other masslike areas in the karolina gs. No pleural effusions or pneumothorax. Central and peripheral airways are patent. Mediastinum: Heart size is normal, without pericardial effusion. No mediastinal or hilar adenopathy . Thoracic aorta is normal in caliber and enhancement. Esophagus is normal in caliber, without hiat al hernia. Bones and chest wall: No suspicious bony lesions. Ribs and thoracic spine appear intact throughout. The thyroid is normal. No axillary or supraclavicular adenopathy. Abdomen: Visualized upper abdominal solid organs appear normal in the early arterial phase of enhanc ement. IMPRESSION: 1. Normal pulmonary venous anatomy. Pulmonary venous measurements as described above. 2. Chronic masslike density in the left upper lobe apex, likely representing chronic scarring. 3. Stable very faint groundglass opacity in the lateral aspect of the lingula. Reviewed by: Eliot Clark MD on 06/18/2020 5:31 PM PDT Approved by: Eliot Clark MD on 06/18/2020 5:31 PM PDT Station ID: [id number]
== END 2020-06-18 14:59 | disposition home or self-care (01) ==
LOC: DI 14:58
PROVIDERS: ATTEND Student in an Organized Health Care Education/Training Program
DX: R91.8 Other nonspecific abnormal finding of lung field (principal)
CPT/HCPCS: 71275; Q9967

== ENCOUNTER 2020-07-01 18:32 | Outpatient (CLI) | payer OTHER, MEDICARE | END 2020-07-01 18:33 | disposition home or self-care (01) | LOC: COV 18:32 | PROVIDERS: ATTEND Family Medicine | DX: M79.10 Myalgia, unspecified site (principal); R53.83 Other fatigue; R19.7 Diarrhea, unspecified; Z20.828 Contact with and (suspected) exposure to other viral communicable diseases ==

== ENCOUNTER 2020-07-26 17:32 | Emergency (ER) | payer OTHER, MEDICARE ==
--- NOTE | 2020-07-26 18:59 | ED Physician Documentation ---
PD HPI HEADACHE - Stated complaint Stated Complaint: BAKER,POST OP - Chief complaint Chief Complaint: Neuro - History obtained from History obtained from: Patient - Additional information Additional information: She had a parotidectomy few days ago at [facility]. She has chronic headaches and head tightness but today developed rapid but not sudden onset headache around 330 this afternoon while walking. It is in the left temporal area. It is better now. No light sensitivity or vomiting. 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[employer]OWER: Other (lumpectomy at L r/t breast CA) - Present Medications Home Medications: Ambulatory Orders Medication Instructions Recorded Confirmed Cholecalciferol (Vitamin D3) 400 unit PO DAILY 04/22/14 12/31/19 [Vitamin D3] Magnesium Oxide [Magnesium] 500 mg PO DAILY 04/22/14 12/31/19 Aspirin 325 mg PO DAILY 02/25/16 12/31/19 EPINEPHrine [Epipen 2-Anthony] 0.3 mg IJ ONCE PRN 12/05/17 12/31/19 Lorazepam [Ativan] 0.5 mg PO ONCE PRN 12/05/17 12/31/19 Metoprolol Succinate 25 mg PO BID 12/05/17 12/31/19 Flecainide [Tambocar] 50 mg PO Q12H 12/31/19 12/31/19 - Allergies Allergies/Adverse Reactions: Allergies Allergy/AdvReac Type Severity Reaction Status Date / Time diltiazem Allergy Angioedema Verified 07/26/20 17:37 Latex, Natural Rubber Allergy Anaphylaxis Verified 07/26/20 17:37 - Social History Does the pt smoke?: No Smoking Status: Never smoker Does the pt drink ETOH?: No Does the pt have substance abuse?: No - Immunizations Immunizations are current?: Yes PD ED PE NORMAL - Vitals Vital signs reviewed: Yes - General General: Alert and oriented X 3, No acute distress - HEENT HEENT: PERRL, EOMI - Neck Neck: Supple, no meningeal sign, No bony TTP - Neuro Neuro: Alert and oriented X 3, Other (NIH stroke scale done at 6:45 PM is 0) Eye Opening: Spontaneous Motor: Obeys Commands Verbal: Oriented GCS Score: 15 Results - Vitals Vitals: Vital Signs - 24 hr 07/26/20 07/26/20 17:37 18:56 Temperature 36.6 C 36.0 C L Heart Rate 58 L 83 Respiratory 18 16 Rate Blood Pressure 125/86 H 136/75 H O2 Saturation 100 100 Oxygen O2 Source Room air - Rads (name of study) CT Head Radiology: EMP read contemporaneously (normal) PD MEDICAL DECISION MAKING - ED course ED course: 64-year-old woman who is off anticoagulation perioperatively presents with headache. She is concerned about a stroke, there is no clinical evidence of same. That said it is a new and concerning headache and therefore CT imaging was done and negative for acute issue. No clinical evidence of meningitis. Departure - Departure Disposition: 01 Home, Self Care Clinical Impression: Headache Qualifiers: Headache type: tension-type Headache chronicity pattern: acute headache Intractability: not intractable Qualified Code(s): G44.209 - Tension-type headache, unspecified, not intractable Condition: Good Record reviewed to determine appropriate education?: Yes Instructions: ED Cephalgia Unspecified Comments: Ct of the the head is normal, Tylenol as needed for pain and return if new or worsening symptoms presents. Otherwise follow-up with your ENT tomorrow as scheduled.
--- NOTE | 2020-07-26 19:43 | CT Report ---
PROCEDURE: HEAD WO INDICATIONS: headache TECHNIQUE: Noncontrast 4.5 mm thick angled axial sections acquired from the foramen magnum to the vertex. For r adiation dose reduction, the following was used: automated exposure control, adjustment of mA and/or kV according to patient size. COMPARISON: None. FINDINGS: Image quality: Excellent. CSF spaces: Basal cisterns are patent. No extra-axial fluid collections. Ventricles are normal in size and shape. Brain: No midline shift. No intracranial masses or hemorrhage. Ortega-white matter interface is norm al. Skull and face: Calvarium and visualized facial bones are intact, without suspicious lesions. Neurol ogical noted in the right parotid gland possibly related to reported surgery. Sinuses: Visualized sinuses and mastoids are clear. IMPRESSION: No acute intracranial disease process. Reviewed by: Julee Melgar MD, PhD on 07/26/2020 7:42 PM PDT Approved by: Julee Melgar MD, PhD on 07/26/2020 7:42 PM PDT Station ID: [id number]
[2020-07-26 20:00] VITALS: BP 134/68
== END 2020-07-26 19:59 | disposition home or self-care (01) ==
LOC: ED 17:32
DX: G44.209 Tension-type headache, unspecified, not intractable (principal); I48.91 Unspecified atrial fibrillation; Z79.01 Long term (current) use of anticoagulants
CPT/HCPCS: 70450; 99282; 99284

== ENCOUNTER 2020-07-28 15:33 | Outpatient (CLI) | payer OTHER, MEDICARE ==
--- NOTE | 2020-07-28 16:29 | SLEEP CARE CONSULTATION ---
Information from patient questionnaire entered by Kimberly Nazario. I have reviewed and concur with the information entered by Kimberly Nazario. This document represents the service I personally performed and the decisions made by me, Mark Sorenson MD, [facility]. History of Present Illness Service Date and Time: 07/28/2020 1533 Reason for follow up: other (4 month, insomnia issues) Prior sleep studies: No HPI additional information: HPI: Ms. Sam returned today for follow up of her complaints of snore and insomnia. She had a home sleep apnea test (HSAT) earlier this year that was inconclusive because she took the testing device of after just about an hour. It did not show significant sleep disordered breathing. An in-laboratory polysomnography was recommended. Sleep Study - Results Prior sleep studies: No Subjective Initial [place] Sleepiness Scale score: 5 (in 2019) Allergies and Home Medications Drug allergies reviewed: Yes Home medication list reviewed: Yes Review of Systems Review of systems same as previous: Yes Physical Exam Height: 5 ft 6 in Weight: 145 lb Body Mass Index: 23.3 BMI Classification: Healthy weight Impression and Plan IMPRESSION: 1. Obstructive Sleep Apnea-Hypopnea Syndrome, as suggested by history of loud snoring, frequent awakenings during the night, unrefreshed sleep, persistent fatigue. She also has atrial fibrillation and will undergo ablation therapy in a few weeks. Because the home sleep apnea test (HSAT) did not work, I will order an in-laboratory polysomnography. PLAN: 1. Schedule an in-laboratory polysomnography after her ablation procedure. 2. Return for a follow up after the sleep study. Visit Type: In Office Time Spent with Patient (minutes): 15 Provider Statement: I spent 100% of the Face to Face Visit with the patient with greater than 50% spent counseling the patient and coordination of care.
== END 2020-07-28 15:34 | disposition home or self-care (01) ==
LOC: SC 15:33
PROVIDERS: ATTEND Internal Medicine Pulmonary Disease
DX: G47.00 Insomnia, unspecified (principal); R06.83 Snoring; I51.9 Heart disease, unspecified
CPT/HCPCS: 99212; 99213

== ENCOUNTER 2020-08-03 10:10 | Outpatient (CLI) | payer OTHER, MEDICARE ==
[2020-08-03 13:20] LABS: BASOPHILS # (AUTO) 0.1 10^3/uL (0.0-0.1); BASOPHILS % (AUTO) 1.1 %; EOSINOPHILS # (AUTO) 0.1 10^3/uL (0.0-0.7); HGB - HEMOGLOBIN 12.9 g/dL (12.0-16.0); LYMPHOCYTES # (AUTO) 1.8 10^3/uL (1.5-3.5); LYMPHOCYTES % (AUTO) 27.2 %; MEAN CORPUSCULAR HEMOGLOBIN 29.2 pg (27.0-31.0); MEAN CORPUSCULAR HGB CONC 31.3 g/dL (32.0-36.0); MEAN CORPUSCULAR VOLUME 93.2 fL (81.0-99.0); MEAN PLATELET VOLUME 9.1 fL (7.9-10.8); MONOCYTES # (AUTO) 0.7 10^3/uL (0.0-1.0); MONOCYTES % (AUTO) 9.9 %; NEUTROPHILS % (AUTO) 59.6 %; PLT - PLATELET COUNT 286 10^3/uL (130-450); RED BLOOD COUNT 4.42 10^6/uL (4.20-5.40); RED CELL DISTRIBUTION WIDTH 12.2 % (12.0-15.0); WHITE BLOOD COUNT 6.7 x10^3/uL (4.8-10.8)
[2020-08-03 13:56] LABS: ALKALINE PHOSPHATASE 69 IU/L (42-121); ALT ALANINE AMINOTRANSFERASE 16 IU/L (10-60); AST ASPARTATE AMINOTRANSFERASE 19 IU/L (10-42); BILIRUBIN,TOTAL 0.8 mg/dL (0.2-1.0); BUN - BLOOD UREA NITROGEN 16 mg/dL (6-20); CALCIUM 9.7 mg/dL (8.5-10.3); CARBON DIOXIDE - CO2 28 mmol/L (21-32); CHLORIDE 101 mmol/L (101-111); CHOLESTEROL 193 mg/dL; CREATININE 0.7 mg/dL (0.4-1.0); GLUCOSE 94 mg/dL (70-100); HDL CHOLESTEROL 65 mg/dL; LDL CHOLESTEROL,CALCULATED 118 mg/dL; LDL/HDL RATIO 1.8 (<4.4); SODIUM 138 mmol/L (135-145); VLDL CHOLESTEROL 10 mg/dL
== END 2020-08-03 23:59 | disposition home or self-care (01) ==
LOC: LAB.WCP 10:10
PROVIDERS: ATTEND Physician Assistant Medical
DX: I48.91 Unspecified atrial fibrillation (principal); L20.9 Atopic dermatitis, unspecified
CPT/HCPCS: 36415; 80053; 80061; 83721; 84443; 85025

== ENCOUNTER 2020-08-04 12:37 | Outpatient (CLI) | payer OTHER, MEDICARE ==
--- NOTE | 2020-08-05 09:55 | Mammography Report ---
BILATERAL DIGITAL SCREENING MAMMOGRAM 3D/2D: 08/04/2020 CLINICAL: Routine screening. Personal history of left breast cancer. Comparison is made to exams dated: 03/29/2019 mammogram, 03/28/2018 mammogram, 02/14/2017 mammogram, 07/2016 mammogram, 11/05/2014 mammogram, and 10/10/2013 mammogram - [facility]. The tissue of both breasts is heterogeneously dense. This may lower the sensitivity of mammography. There are benign post operative findings in the left breast. No significant masses, calcifications, or other findings are seen in either breast. There has been no significant interval change. IMPRESSION: BENIGN There is no mammographic evidence of malignancy. A 1 year screening mammogram is recommended. This exam was interpreted at Station ID: [id number]. NOTE: For mammograms, a report in lay terms will be sent to the patient. Approximately 15% of breast malignancies will not be visualized mammographically. In the management of a palpable breast mass, a negative mammogram must not discourage biopsy of a clinically suspicious lesion. Electronically Signed By: Ori Kelsey M.D. [facility]:08/04/2020 14:55:23 ACR BI-RADS Category 2: Benign Finding(s) 3342F PARENCHYMAL PATTERN: (D) - The breast(s) demonstrate(s) heterogeneously dense fibroglandular lucia russell. BI-RADS CATEGORY: (2) - 2 RECOMMENDATION: (ANNUAL) - Recommend routine annual screening mammography. [id number] 1 year screening LATERALITY: (B)
== END 2020-08-04 12:38 | disposition home or self-care (01) ==
LOC: DI.N 12:37
DX: Z12.31 Encounter for screening mammogram for malignant neoplasm of breast (principal); Z85.3 Personal history of malignant neoplasm of breast
CPT/HCPCS: 77063; 77067

== ENCOUNTER 2020-09-28 14:10 | Outpatient (CLI) | payer OTHER, MEDICARE | END 2020-09-28 14:11 | disposition critical access hospital (66) | LOC: EMS 14:10 | PROVIDERS: ATTEND Surgery | DX: R42 Dizziness and giddiness (principal); R06.00 Dyspnea, unspecified; R11.0 Nausea | CPT/HCPCS: A0425; A0427 ==

== ENCOUNTER 2020-09-28 14:55 | Emergency (ER) | payer OTHER, MEDICARE ==
[2020-09-28] MEDS ORDERED: LORazepam 2 MG/ML VIAL IVP STA (15:09)
--- NOTE | 2020-09-28 15:10 | ED Physician Documentation ---
History of Present Illness - Stated complaint Stated Complaint: VERTIGO - Chief complaint Chief Complaint: Abd Pain - History obtained from History obtained from: Patient - History of Present Illness Timing: Today Pain level max: 0 Pain level now: 0 - Additonal information Additional information: 65-year-old female presents to the emergency department stating she felt like she had a panic attack at home today. She tried to take her lorazepam but vomited x1. She states that she had a feeling that she cannot describe. It was not like the room was spinning. She did not feel off balance. She did have nausea and vomiting. Currently feels better. No chest pain. No shortness of breath. No fevers. No trauma. No recent illness. 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 : Frequency HEENT: Chronic vision loss Psych: None Musculoskeletal: Fibromyalgia Derm: Eczema - Past Surgical History General: Colonoscopy, Other /CERTIFIED RECREATIONAL THERAPIST: Other (lumpectomy at L r/t breast CA) - Present Medications Home Medications: Ambulatory Orders Medication Instructions Recorded Confirmed Cholecalciferol (Vitamin D3) 400 unit PO DAILY 04/22/14 12/31/19 [Vitamin D3] Magnesium Oxide [Magnesium] 500 mg PO DAILY 04/22/14 12/31/19 Aspirin 325 mg PO DAILY 02/25/16 12/31/19 EPINEPHrine [Epipen 2-Anthony] 0.3 mg IJ ONCE PRN 12/05/17 12/31/19 Lorazepam [Ativan] 0.5 mg PO ONCE PRN 12/05/17 12/31/19 Metoprolol Succinate 25 mg PO BID 12/05/17 12/31/19 Flecainide [Tambocar] 50 mg PO Q12H 12/31/19 12/31/19 - Allergies Allergies/Adverse Reactions: Allergies Allergy/AdvReac Type Severity Reaction Status Date / Time diltiazem Allergy Angioedema Verified 09/28/20 15:04 Latex, Natural Rubber Allergy Anaphylaxis Verified 09/28/20 15:04 - Social History Does the pt smoke?: No Smoking Status: Never smoker Does the pt drink ETOH?: No Does the pt have substance abuse?: No - Immunizations Immunizations are current?: Yes PD ED PE NORMAL - Vitals Vital signs reviewed: Yes - General General: Alert and oriented X 3, No acute distress, Well developed/nourished - HEENT HEENT: PERRL, Moist mucous membranes - Neck Neck: Supple, no meningeal sign - Cardiac Cardiac: RRR, Strong equal pulses - Respiratory Respiratory: No respiratory distress, Clear bilaterally - Abdomen Abdomen: Soft, Non tender, Non distended - Derm Derm: Warm and dry - Extremities Extremities: No edema - Neuro Neuro: Alert and oriented X 3 - Psych Psych: Normal mood, Normal affect Results - Vitals Vitals: Vital Signs - 24 hr 09/28/20 09/28/20 09/28/20 15:01 15:05 16:16 Temperature 36.5 C Heart Rate 80 77 67 Respiratory 14 16 16 Rate Blood Pressure 123/72 94/76 111/47 L O2 Saturation 100 100 100 09/28/20 16:54 Temperature 36.4 C L Heart Rate 71 Respiratory 16 Rate Blood Pressure 116/71 O2 Saturation 100 Oxygen O2 Source Room air - Labs Labs: Laboratory Tests 09/28/20 09/28/20 15:22 15:22 WBC 6.7 RBC 4.30 Hgb 12.7 Hct 39.2 MCV 91.2 MCH 29.5 MCHC 32.4 RDW 12.2 Plt Count 243 MPV 8.6 Neut # (Auto) 4.9 Lymph # (Auto) 1.3 L Tompkins # (Auto) 0.4 Eos # (Auto) 0.0 Baso # (Auto) 0.1 Absolute Nucleated RBC 0.00 Nucleated RBC % 0.0 Sodium 132 L Potassium 3.6 Chloride 100 L Carbon Dioxide 20 L Anion Gap 12.0 BUN 16 Creatinine 0.7 Estimated GFR (MDRD) 84 L Glucose 133 H Calcium 9.4 Phosphorus 1.5 L Magnesium 1.9 Total Bilirubin 0.8 AST 23 ALT 19 Alkaline Phosphatase 79 Total Protein 7.2 Albumin 3.7 Globulin 3.5 Albumin/Globulin Ratio 1.1 PD MEDICAL DECISION MAKING - ED course Complexity details: reviewed results, re-evaluated patient, considered differential, d/w patient ED course: Symptoms resolved with Ativan. Patient did appear anxious initially. Feels mu ch better. Given IV fluids. Symptoms all fully resolved. Tolerating p.o. without difficulty. We will have her follow-up with her doctor for further care. Patient counseled regarding signs and symptoms for which I believe and urgent re-evaluation would be necessary. Patient with good understanding of and agreement to plan and is comfortable going home at this time This document was made in part using voice recognition software. While efforts are made to proofread this document, sound alike and grammatical errors may occur. Departure - Departure Disposition: 01 Home, Self Care Clinical Impression: Anxiety, Dehydration Vomiting Qualifiers: Vomiting type: unspecified Vomiting Intractability: non-intractable Nausea presence: with nausea Qualified Code(s): R11.2 - Nausea with vomiting, unspecified Condition: Good Instructions: ED Dehydration, ED Nausea Vomiting Follow-Up: Dorcas Rodriguez PA-C [Primary Care Provider] - Within 1 week Comments: Make sure you are drinking plenty of water at home. Return if you worsen. Follow-up with your doctor for further care. Discharge Date/Time: 09/28/20 17:05
[2020-09-28 15:28] LABS: BASOPHILS # (AUTO) 0.1 10^3/uL (0.0-0.1); BASOPHILS % (AUTO) 0.7 %; EOSINOPHILS % (AUTO) 0.4 %; HGB - HEMOGLOBIN 12.7 g/dL (12.0-16.0); LYMPHOCYTES # (AUTO) 1.3 10^3/uL (1.5-3.5); LYMPHOCYTES % (AUTO) 19.3 %; MEAN CORPUSCULAR HEMOGLOBIN 29.5 pg (27.0-31.0); MEAN CORPUSCULAR HGB CONC 32.4 g/dL (32.0-36.0); MEAN CORPUSCULAR VOLUME 91.2 fL (81.0-99.0); MEAN PLATELET VOLUME 8.6 fL (7.9-10.8); MONOCYTES # (AUTO) 0.4 10^3/uL (0.0-1.0); MONOCYTES % (AUTO) 5.7 %; NEUTROPHILS # (AUTO) 4.9 10^3/uL (1.5-6.6); NEUTROPHILS % (AUTO) 73.6 %; PLT - PLATELET COUNT 243 10^3/uL (130-450); RED CELL DISTRIBUTION WIDTH 12.2 % (12.0-15.0); WHITE BLOOD COUNT 6.7 x10^3/uL (4.8-10.8)
[2020-09-28] MEDS ORDERED: SODIUM CHLORIDE 0.9% 1,000 ML IV STA (15:32)
[2020-09-28 15:40] LABS: ALBUMIN 3.7 g/dL (3.2-5.5); ALBUMIN/GLOBULIN RATIO 1.1 (1.0-2.2); BILIRUBIN,TOTAL 0.8 mg/dL (0.2-1.0); CALCIUM 9.4 mg/dL (8.5-10.3); CREATININE 0.7 mg/dL (0.4-1.0); MAGNESIUM 1.9 mg/dL (1.7-2.8); PHOSPHORUS 1.5 mg/dL (2.5-4.6); TOTAL PROTEIN 7.2 g/dL (6.7-8.2)
[2020-09-28 16:56] VITALS: BP 116/71
== END 2020-09-28 17:05 | disposition home or self-care (01) ==
LOC: EDUNIT# → ED 14:55
DX: F41.9 Anxiety disorder, unspecified (principal); E86.0 Dehydration; R11.2 Nausea with vomiting, unspecified; Z79.82 Long term (current) use of aspirin
CPT/HCPCS: 36415; 80053; 83735; 84100; 85025; 96361; 96374; 99283; 99284; J2060

== ENCOUNTER 2020-11-24 14:05 | Outpatient (CLI) | payer OTHER, MEDICARE | END 2020-11-24 14:06 | disposition home or self-care (01) | LOC: SC 14:05 | PROVIDERS: ATTEND Internal Medicine Pulmonary Disease | DX: Z53.9 Procedure and treatment not carried out, unspecified reason (principal) ==

== ENCOUNTER 2020-12-10 15:05 | Outpatient (CLI) | payer OTHER, MEDICARE | END 2020-12-10 15:06 | disposition home or self-care (01) | LOC: SC 15:05 | PROVIDERS: ATTEND Internal Medicine Pulmonary Disease | DX: G47.10 Hypersomnia, unspecified (principal); G47.8 Other sleep disorders; R53.83 Other fatigue; R06.83 Snoring | CPT/HCPCS: 95806 ==

== ENCOUNTER 2020-12-21 14:00 | Outpatient (CLI) | payer OTHER, MEDICARE ==
--- NOTE | 2020-12-22 10:37 | SLEEP CARE CONSULTATION ---
Information from patient questionnaire entered by Jeremie Fisher. I have reviewed and concur with the information entered by Jeremie Fisher. This document represents the service I personally performed and the decisions made by me, Mark Sorenson MD, [facility]. History of Present Illness Service Date and Time: 12/21/2020 1400 Initial [place] Sleepiness Scale score: 5 (in 2019) Current [place] Sleepiness Scale score: 5 Additional HPI information: HPI: Ms. Sam returned for follow up of the sleep study she had on 12/10/2020. The test showed no significant sleep disordered breathing with an AHI of 1.4 and see oxygen saturation of 92%. The few respiratory events occurred almost exclusively during supine sleep. The patient was informed of these findings. I explained to her that the home sleep apnea test (HSAT) was again negative but she did not sleep much on her back. The patient confirms that she normally does not sleep on her back either. She does snore usually. Her main complaint is insomnia which we addressed on her last visit. Sleep Study - Results Type of Sleep Study: Home sleep study Prior sleep studies: No Allergies and Home Medications Drug allergies reviewed: Yes Home medication list reviewed: Yes Review of Systems Review of systems same as previous: Yes Physical Exam Height: 5 ft 6 in Weight: 145 lb Body Mass Index: 23.3 BMI Classification: Healthy weight Impression and Plan IMPRESSION: 1. Insomnia, related to excessive time spent in bed. No sleep- disordered breathing on two home sleep apnea tests (HSAT). Even though she has history of atrial fibrillation, she is at low risk of having obstructive sleep apnea-hypopnea. I advised her that if she snores louder or redevelops atrial fibrillation, she should return for an in-laboratory polysomnography. PLAN: 1. Maintain a regular wake up time and spend no more than 8 hours in bed at night. Avoid naps. 2. Return for a follow up on as needed basis. Visit Type: In Office Time Spent with Patient (minutes): 15 Provider Statement: I spent 100% of the Face to Face Visit with the patient with greater than 50% spent counseling the patient and coordination of care.
== END 2020-12-21 14:01 | disposition home or self-care (01) ==
LOC: SC 14:00
PROVIDERS: ATTEND Internal Medicine Pulmonary Disease
DX: G47.00 Insomnia, unspecified (principal)
CPT/HCPCS: 99212

== ENCOUNTER 2021-03-31 15:55 | Outpatient (CLI) | payer OTHER, MEDICARE ==
--- NOTE | 2021-03-31 16:38 | XRAY Report ---
PROCEDURE: Hip w/Pelvis 1V LT INDICATIONS: L HIP PX TECHNIQUE: AP pelvis with lateral view of the left hip. COMPARISON: None. FINDINGS: Bones: No acute fractures or dislocations. Pelvic ring appears intact. No suspicious bony lesions. There is mild symmetric lateral acetabular spurring. Mild degenerative changes are seen in the inclu ded lower lumbar spine. Soft tissues: The visualized bowel gas pattern is normal. No suspicious soft tissue calcifications. IMPRESSION: Minimal symmetric osteoarthrosis bilaterally. Reviewed by: Israel Robles MD on 03/31/2021 4:36 PM PDT Approved by: Israel Robles MD on 03/31/2021 4:36 PM PDT Station ID: [id number]
== END 2021-03-31 15:56 | disposition home or self-care (01) ==
LOC: DI.N 15:55
PROVIDERS: ATTEND Physician Assistant Medical
DX: M16.0 Bilateral primary osteoarthritis of hip (principal); Z51.81 Encounter for therapeutic drug level monitoring; Z79.899 Other long term (current) drug therapy
CPT/HCPCS: 36415; 80048

== ENCOUNTER 2021-03-31 16:00 | Outpatient (CLI) | payer OTHER, MEDICARE ==
[2021-03-31 17:42] LABS: CALCIUM 8.9 mg/dL (8.5-10.3); CREATININE 0.8 mg/dL (0.4-1.0); POTASSIUM 3.9 mmol/L (3.5-5.0)
== END 2021-03-31 16:01 | disposition home or self-care (01) ==
LOC: LAB.N 16:00
PROVIDERS: ATTEND Nurse Practitioner Family
DX: Z51.81 Encounter for therapeutic drug level monitoring (principal); Z79.899 Other long term (current) drug therapy
CPT/HCPCS: 36415; 80048

== ENCOUNTER 2021-07-13 08:00 | Outpatient (CLI) | payer OTHER, MEDICARE ==
[2021-07-13 11:48] LABS: BASOPHILS # (AUTO) 0.1 10^3/uL (0.0-0.1); BASOPHILS % (AUTO) 1.2 %; EOSINOPHILS # (AUTO) 0.1 10^3/uL (0.0-0.7); EOSINOPHILS % (AUTO) 2.5 %; HCT - HEMATOCRIT 39.5 % (37.0-47.0); HGB - HEMOGLOBIN 12.1 g/dL (12.0-16.0); LYMPHOCYTES # (AUTO) 1.8 10^3/uL (1.5-3.5); LYMPHOCYTES % (AUTO) 35.3 %; MEAN CORPUSCULAR HEMOGLOBIN 28.3 pg (27.0-31.0); MEAN CORPUSCULAR HGB CONC 30.6 g/dL (32.0-36.0); MEAN CORPUSCULAR VOLUME 92.3 fL (81.0-99.0); MONOCYTES # (AUTO) 0.6 10^3/uL (0.0-1.0); MONOCYTES % (AUTO) 11.1 %; NEUTROPHILS # (AUTO) 2.6 10^3/uL (1.5-6.6); NEUTROPHILS % (AUTO) 49.7 %; PLT - PLATELET COUNT 274 10^3/uL (130-450); RED BLOOD COUNT 4.28 10^6/uL (4.20-5.40); RED CELL DISTRIBUTION WIDTH 12.5 % (12.0-15.0); WHITE BLOOD COUNT 5.2 x10^3/uL (4.8-10.8)
[2021-07-13 12:59] LABS: ALBUMIN 3.8 g/dL (3.2-5.5); ALBUMIN/GLOBULIN RATIO 1.1 (1.0-2.2); ALKALINE PHOSPHATASE 62 IU/L (42-121); ALT ALANINE AMINOTRANSFERASE 15 IU/L (10-60); AST ASPARTATE AMINOTRANSFERASE 21 IU/L (10-42); BILIRUBIN,TOTAL 0.7 mg/dL (0.2-1.0); BUN - BLOOD UREA NITROGEN 13 mg/dL (6-20); CALCIUM 9.3 mg/dL (8.5-10.3); CARBON DIOXIDE - CO2 27 mmol/L (21-32); CHLORIDE 100 mmol/L (101-111); CHOL/HDL RATIO 2.8 (<4.4); CHOLESTEROL 182 mg/dL; CREATININE 0.7 mg/dL (0.4-1.0); GFR - MDRD 84 (>89); GLUCOSE 90 mg/dL (70-100); HDL CHOLESTEROL 64 mg/dL; LDL CHOLESTEROL,CALCULATED 108 mg/dL; LDL/HDL RATIO 1.7 (<4.4); POTASSIUM 4.4 mmol/L (3.5-5.0); SODIUM 136 mmol/L (135-145); TOTAL PROTEIN 7.3 g/dL (6.7-8.2); TRIGLYCERIDES 52 mg/dL; VLDL CHOLESTEROL 10 mg/dL
[2021-07-13 13:04] LABS: THYROID STIMULATING HORMONE 3.59 uIU/mL (0.34-5.60)
== END 2021-07-13 23:59 | disposition home or self-care (01) ==
LOC: LAB.WCP 08:00
PROVIDERS: ATTEND Nurse Practitioner Family
DX: Z00.00 Encounter for general adult medical examination without abnormal findings (principal); M81.0 Age-related osteoporosis without current pathological fracture; Z51.81 Encounter for therapeutic drug level monitoring; Z79.899 Other long term (current) drug therapy
CPT/HCPCS: 36415; 80048; 80053; 80061; 82306; 83721; 83735; 84443; 85025

== ENCOUNTER 2021-08-27 13:21 | Outpatient (CLI) | payer OTHER, MEDICARE ==
--- NOTE | 2021-08-30 08:21 | Mammography Report ---
BILATERAL DIGITAL SCREENING MAMMOGRAM 3D/2D: 08/27/2021 CLINICAL: Routine screening. Personal history of left breast cancer. Comparison is made to exams dated: 08/04/2020 mammogram, 03/29/2019 mammogram, 03/28/2018 mammogram, mammogram, 01/07/2016 mammogram, and 11/05/2014 mammogram - [facility]. The t issue of both breasts is heterogeneously dense. This may lower the sensitivity of mammography. There are benign post operative findings in the left breast. No significant masses, calcifications, or other findings are seen in either breast. There has been no significant interval change. IMPRESSION: BENIGN There is no mammographic evidence of malignancy. A 1 year screening mammogram is recommended. This exam was interpreted at Station ID: [id number]. NOTE: For mammograms, a report in lay terms will be sent to the patient. Approximately 15% of breast malignancies will not be visualized mammographically. In the management of a palpable breast mass, a negative mammogram must not discourage biopsy of a clinically suspicious lesion. Electronically Signed By: Ori Kelsey M.D. [facility] [place]08/27/2021 15:25:39 ACR BI-RADS Category 2: Benign Finding(s) 3342F PARENCHYMAL PATTERN: (D) - The breast(s) demonstrate(s) heterogeneously dense fibroglandular lucia russell. BI-RADS CATEGORY: (2) - 2 RECOMMENDATION: (ANNUAL) - Recommend routine annual screening mammography. [id number] 1 year screening LATERALITY: (B)
== END 2021-08-27 13:22 | disposition home or self-care (01) ==
LOC: DI 13:21
DX: Z12.31 Encounter for screening mammogram for malignant neoplasm of breast (principal); Z85.3 Personal history of malignant neoplasm of breast

== ENCOUNTER 2022-02-17 08:00 | Outpatient (CLI) | payer OTHER, MEDICARE | END 2022-02-17 23:59 | disposition home or self-care (01) | LOC: LAB.N 08:00 | PROVIDERS: ATTEND Physician Assistant Medical | DX: R19.7 Diarrhea, unspecified (principal); T47.4X5A Adverse effect of other laxatives, initial encounter; Z20.822 Contact with and (suspected) exposure to COVID-19 ==

== ENCOUNTER 2022-04-13 09:55 | Outpatient (CLI) | payer MEDICARE, OTHER ==
[2022-04-13 11:47] LABS: CALCIUM 9.7 mg/dL (8.5-10.3); CREATININE 0.7 mg/dL (0.4-1.0); POTASSIUM 4.7 mmol/L (3.5-5.0)
== END 2022-04-13 09:56 | disposition home or self-care (01) ==
LOC: LAB.N 09:55
PROVIDERS: ATTEND Nurse Practitioner Family
DX: Z51.81 Encounter for therapeutic drug level monitoring (principal); Z79.899 Other long term (current) drug therapy
CPT/HCPCS: 36415; 80048; 83735

== ENCOUNTER 2022-09-07 14:06 | Outpatient (CLI) | payer MEDICARE, OTHER ==
--- NOTE | 2022-09-08 16:43 | Mammography Report ---
BILATERAL DIGITAL SCREENING MAMMOGRAM 3D/2D WITH EXAGGERATED CC: 09/07/2022 CLINICAL: Routine screening. Personal history of left breast cancer. Comparison is made to exams dated: 08/27/2021 mammogram, 08/04/2020 mammogram, 03/28/2018 mammogram, mammogram, and 02/14/2017 mammogram - [facility]. Both breasts are heterogeneously dense, which may obscure small masses (category c / 51-75% glandular tissue). There are benign post operative findings in the left breast. No significant masses, calcifications, or other findings are seen in either breast. There has been no significant interval change. IMPRESSION: BENIGN There is no mammographic evidence of malignancy. A 1 year screening mammogram is recommended. This exam was interpreted at Station ID: [id number]. NOTE: For mammograms, a report in lay terms will be sent to the patient. Approximately 15% of breast malignancies will not be visualized mammographically. In the management of a palpable breast mass, a negative mammogram must not discourage biopsy of a clinically suspicious lesion. Electronically Signed By: Avel Alvarado M.D. [facility]/penrad:09/07/2022 16:38:31 ACR BI-RADS Category 2: Benign Finding(s) 3342F PARENCHYMAL PATTERN: (D) - The breast(s) demonstrate(s) heterogeneously dense fibroglandular parjaiy drew. BI-RADS CATEGORY: (2) - 2 RECOMMENDATION: (ANNUAL) - Recommend routine annual screening mammography. [id number] 1 year screening LATERALITY: (B)
== END 2022-09-07 14:07 | disposition home or self-care (01) ==
LOC: DI 14:06
DX: Z12.31 Encounter for screening mammogram for malignant neoplasm of breast (principal); Z85.3 Personal history of malignant neoplasm of breast

== ENCOUNTER 2023-07-01 10:23 | Emergency (ER) | payer MEDICARE, OTHER ==
--- NOTE | 2023-07-01 13:53 | ED Physician Documentation ---
PD HPI HEADACHE - Stated complaint Stated Complaint: HEAD PX - Chief complaint Chief Complaint: General - History obtained from History obtained from: Patient - Additional information Additional information: Patient is a 67-year-old female with a history of atrial fibrillation, on Eliquis presenting for evaluation of a headache that occurred yesterday. Patient states that yesterday evening she had a brief left-sided headache. She denies exertion at the onset. She does admit that the headache was sudden but quickly resolved without any other associated features. Believes that lasted less than a minute. She does have a history of migraines. She cannot recall if this was the worst headache she has ever had. She hit her head 2 weeks ago Against an objecta while bending down and standing up. She was reading her package insert for Eliquis and saw that it advised that if she has any head injury that she should go to the emergency department for evaluation thus presenting today. She denies a current headache. No neck stiffness. No visual disturbances, chest pain, fever. 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 : Frequency HEENT: Chronic vision loss Psych: None Musculoskeletal: Fibromyalgia Derm: Eczema - Past Surgical History Past Surgical History: Yes General: Colonoscopy, Other /REFRIGERATING ENGINEER HEAD: Other (lumpectomy at L r/t breast CA) - Present Medications Home Medications: Ambulatory Orders Medication Instructions Recorded Confirmed Cholecalciferol (Vitamin D3) 400 unit PO DAILY 04/22/14 12/31/19 [Vitamin D3] Magnesium Oxide [Magnesium] 500 mg PO DAILY 04/22/14 12/31/19 Aspirin 325 mg PO DAILY 02/25/16 12/31/19 EPINEPHrine [Epipen 2-Anthony] 0.3 mg IJ ONCE PRN 12/05/17 12/31/19 Lorazepam [Ativan] 0.5 mg PO ONCE PRN 12/05/17 12/31/19 Metoprolol Succinate 25 mg PO BID 12/05/17 12/31/19 Flecainide [Tambocar] 50 mg PO Q12H 12/31/19 12/31/19 - Allergies Allergies/Adverse Reactions: Allergies Allergy/AdvReac Type Severity Reaction Status Date / Time diltiazem Allergy Angioedema Verified 10/12/22 19:00 doxycycline Allergy Unknown Verified 10/12/22 19:00 Latex, Natural Rubber Allergy Anaphylaxis Verified 10/12/22 19:00 - Social History Does the pt smoke?: No Smoking Status: Never smoker Does the pt drink ETOH?: No Does the pt have substance abuse?: No - Immunizations Immunizations are current?: Yes - POLST Patient has POLST: No PD ED PE NORMAL - General General: Alert and oriented X 3, No acute distress, Well developed/nourished - HEENT HEENT: Atraumatic, PERRL, EOMI - Neck Neck: Supple, no meningeal sign, No bony TTP, C-Spine cleared by NEXUS criteria - Cardiac Cardiac: RRR, No murmur - Respiratory Respiratory: No respiratory distress, Clear bilaterally - Abdomen Abdomen: Soft, Non tender - Derm Derm: Warm and dry - Neuro Neuro: Alert and oriented X 3, lip and gate builder 2-12 intact, No motor deficit, No sensory deficit, Normal speech, Other (Normal unassisted gait) Eye Opening: Spontaneous Motor: Obeys Commands Verbal: Oriented GCS Score: 15 Results - Vitals Vitals: Vital Signs - 24 hr 07/01/23 07/01/23 10:27 14:46 Temperature 36.4 C L Heart Rate 78 67 Respiratory 18 18 Rate Blood Pressure 119/61 117/80 O2 Saturation 100 99 Oxygen O2 Source Room air PD Medical Decision Making - ED course Complexity details: reviewed results, re-evaluated patient, d/w patient ED course: Patient is a 67-year-old female presenting for evaluation of a headache that occurred last night in the setting of being on a blood thinner as well as a head injury 2 weeks ago. She has no symptoms here today. No signs of meningismus to suggest meningitis or subarachnoid hemorrhage. Normal neuro exam. As she is on a blood thinner and did report a headache yesterday as well as having recent head trauma I did feel it prudent to obtain a CT head. Reviewed these images which is negative for any intracranial hemorrhage.Patient is eager for discharge home. She understands concerning symptoms to return for. Departure - Departure Disposition: 01 Home, Self Care Clinical Impression: Headache, Head injury Condition: Stable Instructions: ED Head Injury Closed Comments: Your head CT does not show any signs of bleeding or injury from your recent trauma. Return to the emergency department if you develop new or worsening headache. Please have a low threshold to come to the emergency department for evaluation if you have any trauma to your head as you are on a blood thinner. Forms: PCP List Discharge Date/Time: 07/01/23 14:48
--- NOTE | 2023-07-01 14:24 | CT Report ---
PROCEDURE: HEAD WO INDICATIONS: headache/eliquis TECHNIQUE: Noncontrast 4.5 mm thick angled axial sections acquired from the foramen magnum to the vertex. For r adiation dose reduction, the following was used: automated exposure control, adjustment of mA and/or kV according to patient size. COMPARISON: CT head without, 07/19. FINDINGS: Image quality: Excellent. CSF spaces: Basal cisterns are patent. No extra-axial fluid collections. Ventricles are normal in size and shape. Brain: No midline shift. No intracranial masses or hemorrhage. Ortega-white matter interface is norm al. Skull and face: Calvarium and visualized facial bones are intact, without suspicious lesions. Sinuses: Visualized sinuses and mastoids are clear. IMPRESSION: No acute intracranial pathology. Reviewed by: Alice Vergara MD on 07/01/2023 2:22 PM PDT Approved by: Alice Vergara MD on 07/01/2023 2:22 PM PDT Station ID: [id number]
[2023-07-01 14:50] VITALS: BP 117/80; O2SAT 99
== END 2023-07-01 14:48 | disposition home or self-care (01) ==
LOC: ED 10:23
DX: S09.90XA Unspecified injury of head, initial encounter (principal); W22.8XXA Striking against or struck by other objects, initial encounter; I48.91 Unspecified atrial fibrillation; Z79.01 Long term (current) use of anticoagulants
CPT/HCPCS: 99283; 99284

== ENCOUNTER 2023-08-10 11:19 | Outpatient (CLI) | payer MEDICARE, OTHER ==
[2023-08-10 17:47] LABS: BASOPHILS # (AUTO) 0.1 10^3/uL (0.0-0.1); EOSINOPHILS # (AUTO) 0.1 10^3/uL (0.0-0.7); EOSINOPHILS % (AUTO) 2.1 %; HCT - HEMATOCRIT 39.5 % (37.0-47.0); HGB - HEMOGLOBIN 12.2 g/dL (12.0-16.0); LYMPHOCYTES # (AUTO) 1.9 10^3/uL (1.5-3.5); LYMPHOCYTES % (AUTO) 36.1 %; MEAN CORPUSCULAR HEMOGLOBIN 28.4 pg (27.0-31.0); MEAN CORPUSCULAR HGB CONC 30.9 g/dL (32.0-36.0); MEAN CORPUSCULAR VOLUME 91.9 fL (81.0-99.0); MONOCYTES # (AUTO) 0.5 10^3/uL (0.0-1.0); MONOCYTES % (AUTO) 10.5 %; NEUTROPHILS # (AUTO) 2.6 10^3/uL (1.5-6.6); NEUTROPHILS % (AUTO) 50.1 %; PLT - PLATELET COUNT 283 10^3/uL (130-450); RED CELL DISTRIBUTION WIDTH 12.5 % (12.0-15.0); WHITE BLOOD COUNT 5.1 x10^3/uL (4.8-10.8)
[2023-08-10 17:59] LABS: ALBUMIN 4.2 g/dL (3.2-5.5); ALBUMIN/GLOBULIN RATIO 1.2 (1.0-2.2); ALKALINE PHOSPHATASE 62 IU/L (42-121); ALT ALANINE AMINOTRANSFERASE 12 IU/L (10-60); AST ASPARTATE AMINOTRANSFERASE 19 IU/L (10-42); BILIRUBIN,TOTAL 0.6 mg/dL (0.2-1.0); BUN - BLOOD UREA NITROGEN 17 mg/dL (6-20); CALCIUM 9.7 mg/dL (8.5-10.3); CARBON DIOXIDE - CO2 29 mmol/L (21-32); CHLORIDE 101 mmol/L (101-111); CHOL/HDL RATIO 2.9 (<4.4); CHOLESTEROL 193 mg/dL; CREATININE 0.7 mg/dL (0.6-1.3); GFR - MDRD 83 (>89); GLUCOSE 93 mg/dL (74-104); HDL CHOLESTEROL 66 mg/dL; LDL CHOLESTEROL,CALCULATED 114 mg/dL; LDL/HDL RATIO 1.7 (<4.4); POTASSIUM 4.4 mmol/L (3.5-4.5); SODIUM 137 mmol/L (135-145); TOTAL PROTEIN 7.6 g/dL (6.4-8.9); TRIGLYCERIDES 64 mg/dL (48-352); VLDL CHOLESTEROL 13 mg/dL
[2023-08-10 18:13] LABS: THYROID STIMULATING HORMONE 3.33 uIU/mL (0.34-5.60)
== END 2023-08-10 11:20 | disposition home or self-care (01) ==
LOC: LAB.N 11:19
PROVIDERS: ATTEND Physician Assistant Medical
DX: R73.9 Hyperglycemia, unspecified (principal); Z79.899 Other long term (current) drug therapy; I48.91 Unspecified atrial fibrillation
CPT/HCPCS: 36415; 80053; 80061; 83721; 84443; 85025

== ENCOUNTER 2023-10-18 08:00 | Outpatient (CLI) | payer MEDICARE, OTHER ==
[2023-10-18 18:16] LABS: FECAL OCCULT BLOOD (FIT) NEGATIVE (NEGATIVE)
== END 2023-10-18 23:59 | disposition home or self-care (01) ==
LOC: LAB.N 08:00
PROVIDERS: ATTEND Physician Assistant Medical
DX: Z12.11 Encounter for screening for malignant neoplasm of colon (principal)
CPT/HCPCS: 82274

== ENCOUNTER 2023-11-14 14:40 | Outpatient (CLI) | payer MEDICARE, OTHER ==
--- NOTE | 2023-11-15 12:57 | Mammography Report ---
BILATERAL DIGITAL SCREENING MAMMOGRAM 3D/2D WITH EXAGGERATED CC: 11/14/2023 CLINICAL: Routine screening. Personal history of left breast cancer. Comparison is made to exams dated: 09/07/2022 mammogram, 08/27/2021 mammogram, 08/04/2020 mammogram, mammogram, 03/28/2018 mammogram, and 02/14/2017 mammogram - [facility]. Both breasts are heterogeneously dense, which may obscure small masses (category c / 51-75% glandular tissue). There are benign vascular calcifications in the left breast. There also are benign post operative fi ndings in the left breast. No significant masses, calcifications, or other findings are seen in either breast. There has been no significant interval change. IMPRESSION: BENIGN There is no mammographic evidence of malignancy. A 1 year screening mammogram is recommended. This exam was interpreted at Station ID: [id number]. NOTE: For mammograms, a report in lay terms will be sent to the patient. Approximately 15% of breast malignancies will not be visualized mammographically. In the management of a palpable breast mass, a negative mammogram must not discourage biopsy of a clinically suspicious lesion. Electronically Signed By: Bryanna baires/evan:11/15/2023 09:26:52 letter sent: No_Letter ACR BI-RADS Category 2: Benign Finding(s) 3342F PARENCHYMAL PATTERN: (D) - The breast(s) demonstrate(s) heterogeneously dense fibroglandular lucia russell. BI-RADS CATEGORY: (2) - 2 Mammogram [id number] 1 year screening LATERALITY: (B)
== END 2023-11-14 14:41 | disposition home or self-care (01) ==
LOC: DI 14:40
DX: Z12.31 Encounter for screening mammogram for malignant neoplasm of breast (principal); Z85.3 Personal history of malignant neoplasm of breast; R92.333 Mammographic heterogeneous density, bilateral breasts; R92.1 Mammographic calcification found on diagnostic imaging of breast

== ENCOUNTER 2023-11-14 14:57 | Outpatient (CLI) | payer MEDICARE, OTHER ==
--- NOTE | 2023-11-14 17:45 | DEXA Report ---
PROCEDURE: Dexa Spine and/or Hip INDICATIONS: POSTMENOPAUSAL TECHNIQUE: Dual energy x-ray absorptiometry (DXA) was performed on a [employer] System. Regions measur ed are the AP Spine, femoral neck, and if needed forearm. COMPARISON: DEXA scan dated 03/29/2019 FINDINGS: Lumbar Spine: Bone Mineral Density 1.087 g/cm/cm,T score -0.8. Previously -0.1 Left Femoral Neck: Bone Mineral Density 0.944 g/cm/cm, T score -0.7. Previously -0.8. Left Hip: Bone Mineral Density 0.908 g/cm/cm,T score -0.8. Previously -0.5. (T score greater or equal to -1.0: NORMAL) (T score from -1.1 to -2.4: OSTEOPENIA) (T score less than or equal to -2.5 to: OSTEOPOROSIS) Impression: By WHO criteria, this patient has normal bone mineral density. Patients with diagnosis of osteoporosis or osteopenia should have regular bone mineral density assess ment. For those eligible for Medicare, routine testing is allowed once every 2 years. Testing frequ ency can be increased for patients who have rapidly progressing disease or for those who are receivin g medical therapy to restore bone mass. Reviewed by: Palma Murray MD on 11/14/2023 5:44 PM PST Approved by: Palma Murray MD on 11/14/2023 5:44 PM PST Station ID: [id number]
== END 2023-11-14 14:58 | disposition home or self-care (01) ==
LOC: DI 14:57
PROVIDERS: ATTEND Physician Assistant Medical
DX: Z78.0 Asymptomatic menopausal state (principal)

== ENCOUNTER 2023-11-18 01:23 | Outpatient (CLI) | payer MEDICARE, OTHER | END 2023-11-18 01:24 | disposition left against medical advice (07) | LOC: EMS 01:23 | DX: R07.89 Other chest pain (principal) ==

== ENCOUNTER 2023-11-18 01:54 | Emergency (ER) | payer MEDICARE, OTHER ==
--- NOTE | 2023-11-18 01:57 | ED Physician Documentation ---
PD HPI CHEST PAIN - Stated complaint Stated Complaint: CHEST PX - History obtained from History obtained from: Patient - Additional information Additional information: HPI from patient. Patient complains of chest pain, rapid onset at approximately 11:30 PM tonight while in bed reading. The pain is was midline, low anterior chest wall, without radiation. There were no exacerbating nor ameliorating factors. There was no nausea vomiting, shortness of breath, diaphoresis. She says she has had similar chest pain in the same location in the past, but never lasting this long; she has not sought medical attention for this chest pain in the past. By the time of this HPI, the patient is asymptomatic. She called 911 and EMS evaluated her and told her that her vital signs and EKG were reassuring, but that she should still go to the emergency department for evaluation and thus she comes in by private vehicle. She says by the time the medics were evaluating her, which was at approximately 1 AM (90 minutes after onset of the symptoms), the pain had essentially resolved. Past medical history includes atrial fibrillation for which she takes Eliquis. She recalls having a treadmill stress test within the past few years and results were unremarkable. Review of Systems Cardiac: reports: Chest pain / pressure. denies: Palpitations, Pedal edema Respiratory: reports: Reviewed and negative GI: reports: Reviewed and negative PD PAST MEDICAL HISTORY - Past Medical History Cardiovascular: Atrial fibrillation Respiratory: None Neuro: Headaches, Migraines Endocrine/Autoimmune: None GI: None SIZING SPRAYER: None : Frequency HEENT: Chronic vision loss Psych: None Musculoskeletal: Fibromyalgia Derm: Eczema - Past Surgical History Past Surgical History: Yes General: Colonoscopy, Other /SIZING SPRAYER: Other (lumpectomy at L r/t breast CA) - Present Medications Home Medications: Ambulatory Orders Medication Instructions Recorded Confirmed Cholecalciferol (Vitamin D3) 400 unit PO DAILY 04/22/14 12/31/19 [Vitamin D3] Magnesium Oxide [Magnesium] 500 mg PO DAILY 04/22/14 12/31/19 Aspirin 325 mg PO DAILY 02/25/16 12/31/19 EPINEPHrine [Epipen 2-Anthony] 0.3 mg IJ ONCE PRN 12/05/17 12/31/19 Lorazepam [Ativan] 0.5 mg PO ONCE PRN 12/05/17 12/31/19 Metoprolol Succinate 25 mg PO BID 12/05/17 12/31/19 Flecainide [Tambocar] 50 mg PO Q12H 12/31/19 12/31/19 - Allergies Allergies/Adverse Reactions: Allergies Allergy/AdvReac Type Severity Reaction Status Date / Time diltiazem Allergy Angioedema Verified 10/12/22 19:00 doxycycline Allergy Unknown Verified 10/12/22 19:00 Latex, Natural Rubber Allergy Anaphylaxis Verified 10/12/22 19:00 - Social History Does the pt smoke?: No Smoking Status: Never smoker Does the pt drink ETOH?: No Does the pt have substance abuse?: No - Immunizations Immunizations are current?: Yes - POLST Patient has POLST: No PD ED PE NORMAL - Vitals Vital signs reviewed: Yes - General General: Alert and oriented X 3, No acute distress, Well developed/nourished - Cardiac Cardiac: RRR, No murmur, No gallop, No rub - Respiratory Respiratory: No respiratory distress, Clear bilaterally - Abdomen Abdomen: Soft, Non tender - Extremities Extremities: No edema Results - Vitals Vitals: Oxygen O2 Source Room air - EKG (time done) No standard instances EKG releavant findings:: EKG personally interpreted by author of this note. Relevant findings are: Rate: Rate (enter#) (67) Rhythm: NSR [place]: Normal Intervals: Normal SD, QRS normal QRS: Normal Ischemia: Normal ST segments - Labs Labs: Laboratory Tests 11/18/23 11/18/23 11/18/23 02:15 02:15 02:15 WBC 4.6 L RBC 4.36 Hgb 12.3 Hct 39.4 MCV 90.4 MCH 28.2 MCHC 31.2 L RDW 12.7 Plt Count 236 MPV 9.0 Neut # (Auto) 2.4 Lymph # (Auto) 1.6 Creek # (Auto) 0.4 Eos # (Auto) 0.1 Baso # (Auto) 0.1 Absolute Nucleated RBC 0.00 Nucleated RBC % 0.0 Sodium 138 Potassium 3.7 Chloride 108 Carbon Dioxide 25 Anion Gap 5.0 L BUN 16 Creatinine 0.6 Estimated GFR (MDRD) 99 Glucose 80 Calcium 8.1 L Total Bilirubin 0.3 AST 18 ALT 12 Alkaline Phosphatase 55 Troponin I High Sens 2.9 Total Protein 6.5 Albumin 3.7 Globulin 2.8 Albumin/Globulin Ratio 1.3 Lipase 41 - Rads (name of study) chest xray Relevant Findings:: Prelim report reviewed, See rad report PD Medical Decision Making - ED course Complexity details: reviewed results, re-evaluated patient, considered differential, d/w patient ED course: Unremarkable results regarding EKG, CXR, and blood tests (including hs-cTn). Results d/w patient, return precautions reviewed. Etiology of symptoms is not apparent at this time. Advised to seek follow up with pcp , next available appointment Departure - Departure Disposition: Home, Self Care Clinical Impression: Chest pain Condition: Good Instructions: ED Chest Pain Atypical Unkn Cause Follow-Up: Dorcas Rodriguez PA-C [Primary Care Provider] - Comments: There were no concerning or diagnostic findings on tonight's test, including the EKG, chest x-ray, and blood tests. As we discussed, there were minor, incidental findings on the blood tests that were outside of normal range which you can discuss with your primary care provider in follow-up. These are considered incidental as they are not far enough away from normal range to cause any signs nor symptoms. Your white blood cell count was slightly below the normal range, as was your calcium level. The cause of your symptoms is not apparent at this time. Follow-up with your primary care provider; further testing might be indicated even if you are not having recurrence of your symptoms. Forms: PCP List Discharge Date/Time: 11/18/23 04:36
[2023-11-18 02:41] LABS: BASOPHILS # (AUTO) 0.1 10^3/uL (0.0-0.1); BASOPHILS % (AUTO) 1.1 %; EOSINOPHILS # (AUTO) 0.1 10^3/uL (0.0-0.7); EOSINOPHILS % (AUTO) 2.6 %; HCT - HEMATOCRIT 39.4 % (37.0-47.0); HGB - HEMOGLOBIN 12.3 g/dL (12.0-16.0); LYMPHOCYTES # (AUTO) 1.6 10^3/uL (1.5-3.5); LYMPHOCYTES % (AUTO) 35.7 %; MEAN CORPUSCULAR HEMOGLOBIN 28.2 pg (27.0-31.0); MEAN CORPUSCULAR HGB CONC 31.2 g/dL (32.0-36.0); MEAN CORPUSCULAR VOLUME 90.4 fL (81.0-99.0); MONOCYTES # (AUTO) 0.4 10^3/uL (0.0-1.0); MONOCYTES % (AUTO) 9.2 %; NEUTROPHILS # (AUTO) 2.4 10^3/uL (1.5-6.6); NEUTROPHILS % (AUTO) 51.4 %; PLT - PLATELET COUNT 236 10^3/uL (130-450); RED BLOOD COUNT 4.36 10^6/uL (4.20-5.40); RED CELL DISTRIBUTION WIDTH 12.7 % (12.0-15.0); WHITE BLOOD COUNT 4.6 x10^3/uL (4.8-10.8)
[2023-11-18 02:56] LABS: ALBUMIN 3.7 g/dL (3.2-5.5)
[2023-11-18 03:00] LABS: ALBUMIN/GLOBULIN RATIO 1.3 (1.0-2.2); BILIRUBIN,TOTAL 0.3 mg/dL (0.2-1.0); CALCIUM 8.1 mg/dL (8.5-10.3); CREATININE 0.6 mg/dL (0.6-1.3); POTASSIUM 3.7 mmol/L (3.5-4.5); TOTAL PROTEIN 6.5 g/dL (6.4-8.9)
[2023-11-18 04:48] VITALS: BP 104/63; O2SAT 100
--- NOTE | 2023-11-18 13:47 | XRAY Report ---
PROCEDURE: Chest 2V INDICATIONS: chest pain TECHNIQUE: 2 views of the chest were obtained. COMPARISON: None. FINDINGS: Surgical changes and devices: Left axillary surgical clips Lungs and pleura: There is hyperinflation and chronic interstitial changes without focal infiltrate, pneumothorax or pleural effusion. Mediastinum: Mediastinal contours appear normal. Heart size is normal. Bones and chest wall: No suspicious bony lesions. Overlying soft tissues appear unremarkable. IMPRESSION: No acute cardio pulmonary findings Reviewed by: Diego Santiago MD on 11/18/2023 12:46 PM [place] Approved by: Diego Santiago MD on 11/18/2023 12:46 PM [place] Station ID: [id number]
== END 2023-11-18 04:36 | disposition home or self-care (01) ==
LOC: ED 01:54
DX: R07.9 Chest pain, unspecified (principal)
CPT/HCPCS: 36415; 80053; 83690; 84484; 85025; 93005; 99283; 99284

== ENCOUNTER 2024-01-08 14:43 | Outpatient (CLI) | payer MEDICARE, OTHER ==
[2024-01-08 16:05] LABS: RHEUMATOID FACTOR NEGATIVE (Negative)
[2024-01-09 15:09] LABS: VITAMIN D 25-HYDROXY 42.5 ng/mL (30.0-100.0)
== END 2024-01-08 14:44 | disposition home or self-care (01) ==
LOC: LAB 14:43
PROVIDERS: ATTEND Physician Assistant Medical
DX: M79.7 Fibromyalgia (principal); K58.9 Irritable bowel syndrome, unspecified
CPT/HCPCS: 36415; 82306; 85651; 86038; 86140; 86200; 86225; 86231; 86364; 86430